=== PATIENT | male | born 1960 | race Caucasian/White ===

== ENCOUNTER 2022-05-30 09:06 | Inpatient (IN) | payer OTHER, SELFPAY ==
[2022-05-30] VITALS (8 sets, daily range): BP systolic 94–166; BP diastolic 64–89; PULSE 70–86; RESP 18–19; TEMP 36.2–36.8; O2SAT 95–100; BMI 29.3; BMI 18.6
--- NOTE | 2022-05-30 10:40 | ED.SOB ---
HPI - SOB/Dyspnea General Time Seen by Provider: 10:40 Date Seen: 05/30/22 Chief Complaint: Shortness of Breath/Dyspnea Stated Complaint: Shortness of breath Time Seen by Provider: 05/30/22 10:24 Source: patient, RN notes reviewed and old records reviewed Mode of arrival: ambulatory Limitations: no limitations History of Present Illness HPI Narrative: Jeffery is a very pleasant 61-year-old gentleman who is a cancer survivor of non-Hodgkin lymphoma from 1988, has a history of type 2 diabetes and chronic kidney disease as well as hypertension who comes to the emergency room for evaluation of shortness of breath. Patient states that for many years he has had intermittent episodes of shortness of breath. Recently last Friday 05/25 he had emergency Oral surgery from an infection in his upper gum line that radiated into his face. He notes that he is on clindamycin for that. He has not had any fevers or chills. He has, however, notice that his shortness of breath seems to be worsening. He is describing the inability to walk very far without stopping and resting. He thinks that he may have borderline asthma and has used inhalers without improvement in the past. He also notes that he always feels like he can not get air into his nose. He did call the [facility] and was told that they could see him today or tomorrow and thus thought he should be evaluated in the emergency room. Patient notes that he is his shortness of breath is not worse with lying down. He has no history of heart problems. He denies any chest pain when the shortness of breath occurs. He does have chronic right leg swelling secondary to varicose veins. This has not changed. He denies any recent fever, runny nose, cough, sore throat. In regards to his lymphoma he was treated with chemotherapy and radiation in 1988. This did not work and he underwent a bone marrow transplant and was hospitalized for 6 weeks. Related Data Home Medications Medication Instructions Recorded Confirmed allopurinol 100 mg tablet 100 mg PO QDAY 02/21/22 05/30/22 omeprazole 40 mg capsule,delayed 40 mg PO QDAY 02/21/22 05/30/22 release clindamycin HCl 300 mg capsule 300 mg PO Q6H 05/30/22 05/30/22 Previous Rx's Medication Instructions Recorded amlodipine 5 mg tablet 5 mg PO .QHS #90 tabs 02/23/22 hydrochlorothiazide 25 mg tablet 25 mg PO QDAY #90 tabs 04/12/22 lisinopril 20 mg tablet 20 mg PO QDAY #90 tabs 04/12/22 Allergies Allergy/AdvReac Type Severity Reaction Status Date / Time amoxicillin Allergy Mild Rash Verified 05/30/22 09:21 Review of Systems Status of ROS: Reports: 10 or more systems reviewed and unremarkable except as noted in History and below Const: Denies: fever, chills or fatigue Eyes: Denies: change in vision ENMT: Reports: mouth pain; Denies: throat pain, neck pain or throat swelling Cardio: Reports: swelling of feet/ankles (Chronic of the right leg.) and shortness of breath with exertion; Denies: chest pain or palpitations Resp: Reports: shortness of breath; Denies: cough, wheezing or pain on inspiration GI: Denies: abdominal pain, nausea, vomiting or diarrhea : Denies: painful urination, urinary frequency or urinary urgency (At night) Musculo: Denies: neck pain Neuro: Denies: headache or weakness in extremities Endo: Denies: fatigue Allergy/Immuno: Denies: throat swelling or wheezing PFSH PFSH Medical History (Updated 05/30/22 @ 19:59 by Jennyfer Casas MD) CKD (chronic kidney disease) DM2 (diabetes mellitus, type 2) Erectile dysfunction GERD (gastroesophageal reflux disease) Gout History of cellulitis Hypertension Non-Hodgkin lymphoma Varicose veins of both lower extremities Surgical History History of cataract surgery History of knee surgery History of varicose vein ligation and stripping Family History (Updated 05/30/22 @ 19:14 by Jennyfer Casas MD) Father Diabetes Bone cancer Mother Schizophrenia Sister Multiple personalities Suicide Social History (Updated 05/30/22 @ 19:46 by Jennyfer Casas MD) Narrative: [employer]. Non smoker, lifelong. Does not use illicit drugs. Has a cat that sometimes breaks the skin. Has not had alcohol in 2 weeks. 5-6 beers 2-3 times per week. Full code. Highest level of school completed/degree received: high school graduate Smoking Status: Never smoker Do you use any of these nicotine containing products: None Second hand tobacco smoke exposure: No How often do you have a drink containing alcohol: never How often do you have six or more drinks on one occasion: Never AUDIT-C Alcohol total score: 0 Non-prescribed substance use: denies use Caffeine: Yes (Diet Mtn Dew, 2-3 cans/day) service: No Exam Narrative: Exam Narrative: Patient is alert and oriented. Nontoxic in appearance. Seen in room 2. Eyes are clear. TMs bilaterally without erythema although right TM is partially obscured by cerumen. Nose without rhinitis. Septum deviated to the left. No excessive erythema or swelling. Oral cavity with poor dentition. He has areas of recent oral surgery upper gumline tooth 8 and 9 no excessive swelling erythema or drainage. Not excessively tender to the touch. Oral cavity with moist mucous membranes. Neck is supple no lymphadenopathy. Heart with regular rate and rhythm. There is a crescendo decrescendo murmur best noted at the lower sternal border. It decreases with the it deep inspiration. Lungs are clear in all lung french. Abdomen soft nontender. Lower extremities without edema. No calf tenderness. Varicosity noted on the right leg. Const: Vital Signs, click to edit/add: Vital Signs - 24 hr 05/30/22 09:15 05/30/22 10:58 05/30/22 18:07 Temperature 97.1 F L 98.1 F Pulse Rate Pulse Rate [Pulse Oximeter] 86 Pulse Rate [Right Pulse Oximeter] 80 Respiratory Rate 18 18 Blood Pressure [Ri ght Arm] 166/81 H Blood Pressure [Ri ght Upper Arm] 94/64 Pulse Oximetry 99 100 99 Oxygen Delivery Me thod Room Air Room Air 05/30/22 18:39 Temperature Pulse Rate 77 Pulse Rate [Pulse Oximeter] Pulse Rate [Right Pulse Oximeter] Respiratory Rate Blood Pressure [Ri ght Arm] Blood Pressure [Ri ght Upper Arm] Pulse Oximetry Oxygen Delivery Me thod Documenting provider has reviewed patient's vital signs: yes Course Course Hospital Course: At this time patient is describing recent oral surgery. He however also has a new murmur associated with increasing shortness of breath with exertion. No evidence of fluid overload at this time. Differential diagnosis is quite broad and does include viral illness such as COVID influenza or RSV, bronchitis, pneumonia, asthma flare, aspiration pneumonia, aortic or mitral valve stenosis, cardiomyopathy, PE at this time will insert IV and draw labs to include CBC, comprehensive panel, CRP, D-dimer, troponin, magnesium. Will also get a chest x-ray as well as urinalysis. Reevaluation(s) Reevaluation #1: Patient noted to continue to be resting comfortably. I did speak to patient about chest x-ray which does show possibility of fibrosis as well as an elevated D-dimer. Although this is minimal in could be attributed to his recent dental surgery IM suggesting chest CT with contrast to rule out PE and to take a closer look at etiology of shortness of breath with exertion. Patient will be hydrated with 1 L saline as his creatinine is 1.5. Vital Signs Vital signs: Initial Vital Signs Temperature 97.1 F L 05/30/22 09:15 Temperature Source Temporal Artery Scan 05/30/22 09:15 Pulse Rate 80 05/30/22 09:15 Respiratory Rate 18 05/30/22 09:15 Blood Pressure 94/64 05/30/22 09:15 Blood Pressure Mean 74 05/30/22 09:15 Blood Pressure Position Sitting 05/30/22 09:15 Pulse Oximetry 99 05/30/22 09:15 Oxygen Delivery Method 05/30/22 09:15 Vital Signs Temperature 97.1 F L 05/30/22 09:15 Pulse Rate 80 05/30/22 09:15 Respiratory Rate 18 05/30/22 09:15 Blood Pressure 94/64 05/30/22 09:15 Pulse Oximetry 99 05/30/22 09:15 Oxygen Delivery Method 05/30/22 09:15 Temperature 97.2 F L 05/30/22 22:00 Pulse Rate 73 05/30/22 22:00 Respiratory Rate 19 05/30/22 22:00 Blood Pressure 150/76 H 05/30/22 22:00 Pulse Oximetry 96 05/30/22 22:00 Oxygen Delivery Method 05/30/22 22:00 MDM - SOB/Dyspnea MDM Narrative Medical decision making narrative: 1. Endocarditis-patient has suspected endocarditis noted on the echocardiogram. This is per tech report. Currently awake waiting official radiological report. I did consult with both extrusion die template maker at [facility] as well as pharmacy. Given patient's penicillin allergy we will be using Primaxin 500 mg and vancomycin 2 g IV. Blood cultures were done drawn prior to that although it should be noted patient has been on clindamycin over the past 5-6 days. Fortunately white count and CRP are reassuring. I did attempt transfer as there are multiple concerns that we do not have ID at [facility]. Unfortunately there were no beds at [place], [facility], [facility], [facility], [facility] or [place]. 2. Recent dental surgery-oral cavity does not appear to be draining. I suspect that this is source of the endocarditis. Patient has been gland clindamycin. 3. Aortic stenosis-this is new. This was auscultated on exam today. Patient denies a history of murmur. I suspect this is secondary to radiation from when Jeffery was younger. No evidence of fluid overload and no history of syncope although patient has being increasingly short of breath over many many months. 4. Pulmonary fibrosis 5. Patchy lung infiltrates-patient has tested negative for viral illnesses since SARs/influenza/RSV. 3. Disposition -admitted under the care of Dr. Casas. Medical Records Attestation: I reviewed the patient's medical records. Lab Data Attestation: I reviewed the patient's lab results. Labs: Lab Results 05/30/22 05/30/22 05/30/22 Range/Units 11:20 11:30 11:30 WBC 5.09 (4.50-11.00) K/uL RBC 4.38 (4.30-5.90) m/uL Hgb 13.7 (13.5-17.5) gm/dL Hct 39.8 (37.0-53.0) % MCV 91 (80-100) fL MCH 31 (26-34) pg MCHC 34 (32-36) gm/dL RDW Coeff of John 13.4 (11.5-15.5) % Plt Count 180 (140-440) K/uL Neut % (Auto) 60.3 (42.0-72.0) % Lymph % (Auto) 26.9 (20-44) % Maury % (Auto) 10.8 (0.0-11.0) % Eos % (Auto) 1.2 (0.0-7.0) % Baso % (Auto) 0.6 (0.0-3.0) % Neut # (Auto) 3.07 (1.7-7.0) K/uL Lymph # (Auto) 1.37 (0.90-2.90) K/uL Maury # (Auto) 0.50 (0.00-0.90) K/UL Eos # (Auto) 0.06 (0.00-0.50) K/uL Baso # (Auto) 0.03 (0.00-0.30) K/uL Abs Immat Gran (auto) 0.01 (0.00-0.30) K/uL Imm/Tot Granulo (auto) 0.2 % D-Dimer Quant (PE/DVT) 0.60 H (0.00-0.50) ug/ml Sodium (135-149) mmol/L Potassium (3.6-5.1) mmol/L Chloride (96-114) mmol/L Carbon Dioxide (20-32) mmol/L BUN (7-30) mg/dL Creatinine (0.5-1.5) mg/dL Estimated Creat Clear Estimated GFR ml/min Glucose (60-115) mg/dL Calcium (8.4-10.6) mg/dL Magnesium (1.5-2.6) mg/dL Total Bilirubin (0.1-1.5) mg/dL AST (12-35) U/L ALT (4-50) U/L Alkaline Phosphatase (40-150) U/L Troponin I (0.01-0.04) ng/mL C-Reactive Protein (0.5-1.0) mg/dL NT-Pro-B Natriuret Pep (0-125) PG/mL Total Protein (6.0-8.3) g/dL Albumin (3.3-5.0) g/dL Urine Color Yellow (Yellow) Urine Appearance Clear (Clear) Urine pH 5.5 (5.0-8.5) Ur Specific [place] 1.015 (1.000-1.030) Urine Protein Negative (Negative) Urine Glucose (UA) Negative (Negative) Urine Ketones Negative (Negative) Urine Blood Negative (Negative) Urine Nitrite Negative (Negative) Urine Bilirubin Negative (Negative) Urine Urobilinogen 0.2 (0.2-1.0) Ur Leukocyte Esterase Negative (Negative) Urine RBC 0-2 (0-2) Urine WBC 0-2 (0-5) Ur Squamous Epith Cells None (None-Few) Urine Bacteria None (None) SARS-CoV-2 (PCR) (Negative) Influenza Type A (PCR) (Negative) Influenza Type B (PCR) (Negative) RSV (PCR) (Negative) 05/30/22 05/30/22 Range/Units 11:30 11:30 WBC (4.50-11.00) K/uL RBC (4.30-5.90) m/uL Hgb (13.5-17.5) gm/dL Hct (37.0-53.0) % MCV (80-100) fL MCH (26-34) pg MCHC (32-36) gm/dL RDW Coeff of John (11.5-15.5) % Plt Count (140-440) K/uL Neut % (Auto) (42.0-72.0) % Lymph % (Auto) (20-44) % Maury % (Auto) (0.0-11.0) % Eos % (Auto) (0.0-7.0) % Baso % (Auto) (0.0-3.0) % Neut # (Auto) (1.7-7.0) K/uL Lymph # (Auto) (0.90-2.90) K/uL Maury # (Auto) (0.00-0.90) K/UL Eos # (Auto) (0.00-0.50) K/uL Baso # (Auto) (0.00-0.30) K/uL Abs Immat Gran (auto) (0.00-0.30) K/uL Imm/Tot Granulo (auto) % D-Dimer Quant (PE/DVT) (0.00-0.50) ug/ml Sodium 133 L (135-149) mmol/L Potassium 3.2 L (3.6-5.1) mmol/L Chloride 99 (96-114) mmol/L Carbon Dioxide 28 (20-32) mmol/L BUN 24 (7-30) mg/dL Creatinine 1.5 (0.5-1.5) mg/dL Estimated Creat Clear 66.80 Estimated GFR 52 ml/min Glucose 110 (60-115) mg/dL Calcium 8.8 (8.4-10.6) mg/dL Magnesium 1.5 (1.5-2.6) mg/dL Total Bilirubin 0.8 (0.1-1.5) mg/dL AST 36 H (12-35) U/L ALT 48 (4-50) U/L Alkaline Phosphatase 94 (40-150) U/L Troponin I 0.02 (0.01-0.04) ng/mL C-Reactive Protein 0.7 (0.5-1.0) mg/dL NT-Pro-B Natriuret Pep 248 H (0-125) PG/mL Total Protein 7.6 (6.0-8.3) g/dL Albumin 4.4 (3.3-5.0) g/dL Urine Color (Yellow) Urine Appearance (Clear) Urine pH (5.0-8.5) Ur Specific [place] (1.000-1.030) Urine Protein (Negative) Urine Glucose (UA) (Negative) Urine Ketones (Negative) Urine Blood (Negative) Urine Nitrite (Negative) Urine Bilirubin (Negative) Urine Urobilinogen (0.2-1.0) Ur Leukocyte Esterase (Negative) Urine RBC (0-2) Urine WBC (0-5) Ur Squamous Epith Cells (None-Few) Urine Bacteria (None) SARS-CoV-2 (PCR) Negative SARS-CoV-2 (Negative) Influenza Type A (PCR) Negative PCR FLU A (Negative) Influenza Type B (PCR) Negative PCR FLU B (Negative) RSV (PCR) Negative PCR RSV (Negative) Imaging Data Chest x-ray: Attestation: I have reviewed the pertinent imaging results. My impression: Increased lung markings but no evidence of infiltrate. Radiologist's impression: Reticular densities in the right perihilar lung extending to the right upper lobe more prominent compared to the prior exam. Left lung clear. No pleural effusion or pneumothorax. Cardiac silhouette normal. Vascular calcifications. IMPRESSION: Increased reticular prominence in the right perihilar lung extending to the right upper lobe, likely representing chronic fibrotic change. CT scan - chest: Attestation: I have reviewed the pertinent imaging results. My impression: I did not note any evidence of PE Radiologist's impression: INDINGS: Pulmonary arteries: The quality of enhancement of the pulmonary arteries is adequate. No filling defects to suggest pulmonary emboli. No findings of pulmonary artery hypertension. Thyroid: Unremarkable. Thoracic lymph nodes: No enlarged supraclavicular, mediastinal, hilar, or axillary lymph nodes. Mediastinum and esophagus: Unremarkable. Heart and vasculature: Unremarkable. Lungs: Coarse interstitial markings with areas of air bronchograms in the right upper lobe suggestive of chronic changes. Diffuse patchy consolidation scattered throughout the right upper and lower lobes. Patchy opacities in the left lower lobe. Pleura: Unremarkable. Chest wall: Unremarkable. Upper abdomen: No acute or significant findings. Calcifications in the spleen are likely granulomas. Bones: Unremarkable for age. IMPRESSION: 1. No pulmonary embolism. 2. Findings suggest chronic changes in the right upper lobe, with diffuse patchy consolidations, probably superimposed acute multifocal infection. ECG Data Attestation: I personally reviewed and interpreted this ECG as follows: ECG interpretation date: 05/30/22 Interpretation: EKG by my read shows normal sinus rhythm at a rate of [address] or T-wave changes are noted. Discharge Plan Discharge Clinical Impression: Aortic stenosis, Endocarditis, Pneumonia Patient Disposition: Admitted As Inpatient Condition: Unchanged
--- NOTE | 2022-05-30 10:58 | CRLHL7_ITS ---
For Patients: As a result of the Century Cures Act, medical imaging exams and procedure reports are released immediately into your electronic medical record. You may view this report before your referring provider. If you have questions, please contact your health care provider. INDICATION: Shortness of breath TECHNIQUE: Chest one view COMPARISON: 11/20/2017 FINDINGS: Reticular densities in the right perihilar lung extending to the right upper lobe more prominent compared to the prior exam. Left lung clear. No pleural effusion or pneumothorax. Cardiac silhouette normal. Vascular calcifications. IMPRESSION: Increased reticular prominence in the right perihilar lung extending to the right upper lobe, likely representing chronic fibrotic change. Dictated by Messi Randhawa MD @ 05/30/2022 11:27:49 AM (Electronically Signed)
[2022-05-30 11:43] LABS: Appearance Urine Clear (Clear); Bilirubin Urine Negative (Negative); Blood Urine Negative (Negative); Color Urine Yellow (Yellow); Glucose Urine Negative (Negative); Ketones Urine Negative (Negative); Leukocyte Esterase Urine Negative (Negative); Nitrite Urine Negative (Negative); Protein Urine Negative (Negative); Specific Gravity Urine 1.015 (1.000-1.030); Urobilinogen Urine 0.2 (0.2-1.0); pH Urine 5.5 (5.0-8.5)
[2022-05-30 11:45] LABS: Basophils Absolute Auto 0.03 K/uL (0.00-0.30); Basophils Percent Auto 0.6 % (0.0-3.0); Eosinophils Absolute Auto 0.06 K/uL (0.00-0.50); Eosinophils Percent Auto 1.2 % (0.0-7.0); Hematocrit 39.8 % (37.0-53.0); Hemoglobin* 13.7 gm/dL (13.5-17.5); Immature Granulocytes Abs Auto 0.01 K/uL (0.00-0.30); Immature Granulocytes Pct Auto 0.2 %; Lymphocytes Absolute Auto 1.37 K/uL (0.90-2.90); Lymphocytes Percent Auto 26.9 % (20-44); Mean Corpuscular HGB Conc 34 gm/dL (32-36); Mean Corpuscular Hemoglobin 31 pg (26-34); Mean Corpuscular Volume 91 fL (80-100); Monocytes Percent Auto 10.8 % (0.0-11.0); Neutrophils Absolute Auto 3.07 K/uL (1.7-7.0); Neutrophils Percent Auto 60.3 % (42.0-72.0); Platelet Count* 180 K/uL (140-440); RDW Coefficient of Variation % 13.4 % (11.5-15.5); Red Blood Count 4.38 m/uL (4.30-5.90); White Blood Count* 5.09 K/uL (4.50-11.00)
[2022-05-30 11:52] LABS: Slide Review Reflex No
[2022-05-30 11:59] LABS: Albumin* 4.4 g/dL (3.3-5.0); Chloride* 99 mmol/L (96-114); Potassium* 3.2 mmol/L (3.6-5.1); Sodium* 133 mmol/L (135-149)
[2022-05-30 12:01] LABS: Creatinine* 1.5 mg/dL (0.5-1.5); Estimated Glomerular Filt Rate 52 ml/min
[2022-05-30 12:02] LABS: Alanine Aminotransferase* 48 U/L (4-50); Alkaline Phosphatase* 94 U/L (40-150); Aspartate Amino Transferase* 36 U/L (12-35); Bilirubin Total* 0.8 mg/dL (0.1-1.5); Blood Urea Nitrogen* 24 mg/dL (7-30); Carbon Dioxide* 28 mmol/L (20-32); Total Protein* 7.6 g/dL (6.0-8.3)
[2022-05-30 12:03] LABS: Calcium* 8.8 mg/dL (8.4-10.6); Glucose* 110 mg/dL (60-115); Magnesium* 1.5 mg/dL (1.5-2.6)
[2022-05-30 12:04] LABS: RBC Urine 0-2 (0-2); WBC Urine 0-2 (0-5)
[2022-05-30 12:05] LABS: C Reactive Protein* 0.7 mg/dL (0.5-1.0)
[2022-05-30 12:10] LABS: NT Pro B Type NatriureticPept* 248 PG/mL (0-125)
[2022-05-30 12:13] LABS: Troponin I* 0.02 ng/mL (0.01-0.04)
[2022-05-30 12:21] LABS: PCR FLU A Negative PCR FLU A (Negative); PCR FLU B Negative PCR FLU B (Negative); PCR RSV Negative PCR RSV (Negative)
[2022-05-30 12:33] LABS: SARS PCR* Negative SARS-CoV-2 (Negative)
--- NOTE | 2022-05-30 12:52 | CRLHL7_ITS ---
For Patients: As a result of the Century Cures Act, medical imaging exams and procedure reports are released immediately into your electronic medical record. You may view this report before your referring provider. If you have questions, please contact your health care provider. INDICATION: Shortness of breath, recent oral surgery, elevated D-dimer. TECHNIQUE: CT chest PE was acquired with 95 mL Isovue 370 IV contrast. Coronal and sagittal reformats were generated. COMPARISON: Chest x-ray from 05/30/2022 and 11/20/2017. FINDINGS: Pulmonary arteries: The quality of enhancement of the pulmonary arteries is adequate. No filling defects to suggest pulmonary emboli. No findings of pulmonary artery hypertension. Thyroid: Unremarkable. Thoracic lymph nodes: No enlarged supraclavicular, mediastinal, hilar, or axillary lymph nodes. Mediastinum and esophagus: Unremarkable. Heart and vasculature: Unremarkable. Lungs: Coarse interstitial markings with areas of air bronchograms in the right upper lobe suggestive of chronic changes. Diffuse patchy consolidation scattered throughout the right upper and lower lobes. Patchy opacities in the left lower lobe. Pleura: Unremarkable. Chest wall: Unremarkable. Upper abdomen: No acute or significant findings. Calcifications in the spleen are likely granulomas. Bones: Unremarkable for age. IMPRESSION: 1. No pulmonary embolism. 2. Findings suggest chronic changes in the right upper lobe, with diffuse patchy consolidations, probably superimposed acute multifocal infection. Please note that all CT scans at this facility use dose modulation, iterative reconstruction, and/or weight-based dosing when appropriate to reduce radiation dose to as low as reasonably achievable. Dictated by Valente Hicks MD @ 05/30/2022 2:33:25 PM (Electronically Signed)
[2022-05-30] MEDS: 0.9 % SODIUM CHLORIDE 1000 ml 1,000 ML IV (13:39)
--- NOTE | 2022-05-30 19:03 | PC.NURSE ---
Admission. Pt admitted to room 260 from ER. Alert and oriented. Denies pain. VSS on room air. Telemetry monitoring, NSR. Vanco infusing from ER. Admission questions and education completed. Call light within reach. Oriented to room.
--- NOTE | 2022-05-30 19:08 | P.IMHP_ITS ---
Hospitalist- H&P: HPI History of Present Illness Time Seen by Provider: 19:30 Date Seen: 05/31/22 Chief complaint: Shortness of breath Narrative: Jeffery Newton is a 61 year old male with h/o Hodgkins lymphoma 38 y/a for which he had radiation, chemo and BM transplant who presented through ER for CARTAGENA. He's had intermittent CARTAGENA for several months. Last monday, he had oral surgery for a dental abscess and started ciprofloxacin that day. 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 He was too tired, SOB, dizzy, and felt like he couldn't get enough air. He went home and took it easy for the weekend. His daughter noticed on their outing yesterday that he was leaning against the wall trying to catch his breath a coup le of times. This morning he tried to go back to work, but was very short of breath, so he came in for evaluation. He thought he had a sinus infection. He denies CP, palpitations or irregular HR. Review of Systems Const: Reports: fatigue, malaise and night sweats (1.5-2 years, 1 night sweat per 3 months); Denies: fever or chills Eyes: Denies: change in vision, blurry vision or light sensitivity ENMT: Reports: swelling of lips/tongue (last week had infected tooth that caused face swelling as well); Denies: throat pain, neck pain, throat swelling or difficulty swallowing Cardio: Reports: swelling of feet/ankles (vericose veins, especially right leg) and shortness of breath with exertion; Denies: chest pain or palpitations Resp: Reports: shortness of breath and wheezing; Denies: cough GI: Denies: abdominal pain, nausea, vomiting, difficulty swallowing, change in bowel habits or blood in stool : Denies: painful urination, urinary frequency, urinary urgency or blood in urine Musculo: Denies: neck pain Integ/Breast: Denies: rash Neuro: Reports: dizziness and other (right arm tremor); Denies: headache, numbness in extremities, weakness in extremities or lack of coordination Endo: Reports: fatigue Allergy/Immuno: Reports: wheezing; Denies: throat swelling PFSH PFSH Medical History (Updated 05/31/22 @ 00:13 by Jennyfer Casas MD) CKD (chronic kidney disease) DM2 (diabetes mellitus, type 2) Erectile dysfunction GERD (gastroesophageal reflux disease) Gout History of cellulitis Hypertension Non-Hodgkin lymphoma Varicose veins of both lower extremities Surgical History History of cataract surgery History of knee surgery History of varicose vein ligation and stripping Family History (Updated 05/30/22 @ 19:14 by Jennyfer Casas MD) Father Diabetes Bone cancer Mother Schizophrenia Sister Multiple personalities Suicide Social History (Updated 05/30/22 @ 19:46 by Jennyfer Casas MD) Narrative: [employer]. Non smoker, lifelong. Does not use illicit drugs. Has a cat that sometimes breaks the skin. Has not had alcohol in 2 weeks. 5-6 beers 2-3 times per week. Full code. Highest level of school completed/degree received: high school graduate Smoking Status: Never smoker Do you use any of these nicotine containing products: None Second hand tobacco smoke exposure: No How often do you have a drink containing alcohol: never How often do you have six or more drinks on one occasion: Never AUDIT-C Alcohol total score: 0 Non-prescribed substance use: denies use Caffeine: Yes (Diet Mtn Dew, 2-3 cans/day) service: No Meds Home Medications and Allergies Home Medications Medication Instructions Recorded Confirmed Type allopurinol 100 mg tablet 100 mg PO QDAY 02/21/22 05/30/22 History omeprazole 40 mg capsule,delayed 40 mg PO QDAY 02/21/22 05/30/22 History release clindamycin HCl 300 mg capsule 300 mg PO Q6H 05/30/22 05/30/22 History Allergies Allergy/AdvReac Type Severity Reaction Status Date / Time amoxicillin Allergy Mild Rash Verified 05/30/22 09:21 Exam Narrative: Exam Narrative: General: No acute distress. Awake alert oriented x3. HEENT: Normocephalic atraumatic, pupils equally round and reactive to light and accommodation. Oropharynx clear, poor dentition. Mucous membranes are moist. No cervical lymphadenopathy, thyromegaly or carotid bruits. No JVD. Cardiovascular: Regular rate and rhythm. Grade 2/6 systolic murmur loudest at the right upper sternal border. Chest: No increased work of breathing. Clear to auscultation bilaterally. No crackles or wheezes. Abdomen: Bowel sounds present. Soft, nondistended, nontender. No hep atosplenomegaly or masses. Extremities: No edema, no cyanosis or clubbing. Skin: No jaundice, no pallor, no rashes. Neuro: Grossly intact. No focal deficits. Const: Vital Signs, click to edit/add: Vital Signs - 24 hr 05/30/22 09:15 05/30/22 10:58 05/30/22 18:07 Temperature 97.1 F L 98.1 F Pulse Rate Pulse Rate [Pulse Oximeter] 86 Pulse Rate [Right Pulse Oximeter] 80 Respiratory Rate 18 18 Blood Pressure [Ri ght Arm] 166/81 H Blood Pressure [Ri ght Upper Arm] 94/64 Pulse Oximetry 99 100 99 Oxygen Delivery Me thod Room Air Room Air 05/30/22 18:39 Temperature Pulse Rate 77 Pulse Rate [Pulse Oximeter] Pulse Rate [Right Pulse Oximeter] Respiratory Rate Blood Pressure [Ri ght Arm] Blood Pressure [Ri ght Upper Arm] Pulse Oximetry Oxygen Delivery Me thod Eye: Direct Ophthalmoscopy: no photophobia Hospitalist - H&P: Result Labs Labs: Short CBC 05/30/22 Range/Units 11:30 WBC 5.09 (4.50-11.00) K/uL Hgb 13.7 (13.5-17.5) gm/dL Hct 39.8 (37.0-53.0) % Plt Count 180 (140-440) K/uL BMP 05/30/22 11:30 Sodium 133 L Potassium 3.2 L Chloride 99 Carbon Dioxide 28 BUN 24 Creatinine 1.5 Glucose 110 Calcium 8.8 Cardiac Enzymes 05/30/22 Range/Units 11:30 Troponin I 0.02 (0.01-0.04) ng/mL Liver Function 05/30/22 Range/Units 11:30 Total Bilirubin 0.8 (0.1-1.5) mg/dL AST 36 H (12-35) U/L ALT 48 (4-50) U/L Alkaline Phosphatase 94 (40-150) U/L Albumin 4.4 (3.3-5.0) g/dL Urine 05/30/22 Range/Units 11:20 Urine Color Yellow (Yellow) Urine Appearance Clear (Clear) Urine pH 5.5 (5.0-8.5) Ur Specific [place] 1.015 (1.000-1.030) Urine Protein Negative (Negative) Urine Glucose (UA) Negative (Negative) Ordering Physician: Rula Mercado MD Date of Service: 05/30/22 Procedure(s): XR chest 1V portable Accession Number(s): [id number] cc: Rula Mercado MD; Comfort Mae PA-C~ For Patients: As a result of the Cures Act, medical imaging exams and procedure reports are released immediately into your electronic medical record. You may view this report before your referring provider. If you have questions, please contact your health care provider. INDICATION: Shortness of breath TECHNIQUE: Chest one view COMPARISON: 11/20/2017 FINDINGS: Reticular densities in the right perihilar lung extending to the right upper lobe more prominent compared to the prior exam. Left lung clear. No pleural effusion or pneumothorax. Cardiac silhouette normal. Vascular calcifications. IMPRESSION: Increased reticular prominence in the right perihilar lung extending to the right upper lobe, likely representing chronic fibrotic change. Dictated by Messi Randhawa MD @ 05/30/2022 11:27:49 AM (Electronically Signed) Ordering Physician: Rula Mercado MD Date of Service: 05/30/22 Procedure(s): CT angio chest PE protocol Accession Number(s): [id number] cc: Rula Mercado MD; Comfort Mae PA-C~ For Patients: As a result of the Cures Act, medical imaging exams and procedure reports are released immediately into your electronic medical record. You may view this report before your referring provider. If you have questions, please contact your health care provider. INDICATION: Shortness of breath, recent oral surgery, elevated D-dimer. TECHNIQUE: CT chest PE was acquired with 95 mL Isovue 370 IV contrast. Coronal and sagittal reformats were generated. COMPARISON: Chest x-ray from 05/30/2022 and 11/20/2017. FINDINGS: Pulmonary arteries: The quality of enhancement of the pulmonary arteries is adequate. No filling defects to suggest pulmonary emboli. No findings of pulmonary artery hypertension. Thyroid: Unremarkable. Thoracic lymph nodes: No enlarged supraclavicular, mediastinal, hilar, or axillary lymph nodes. Mediastinum and esophagus: Unremarkable. Heart and vasculature: Unremarkable. Lungs: Coarse interstitial markings with areas of air bronchograms in the right upper lobe suggestive of chronic changes. Diffuse patchy consolidation scattered throughout the right upper and lower lobes. Patchy opacities in the left lower lobe. Pleura: Unremarkable. Chest wall: Unremarkable. Upper abdomen: No acute or significant findings. Calcifications in the spleen are likely granulomas. Bones: Unremarkable for age. IMPRESSION: 1. No pulmonary embolism. 2. Findings suggest chronic changes in the right upper lobe, with diffuse patchy consolidations, probably superimposed acute multifocal infection. Please note that all CT scans at this facility use dose modulation, iterative reconstruction, and/or weight-based dosing when appropriate to reduce radiation dose to as low as reasonably achievable. Dictated by Valente Hicks MD @ 05/30/2022 2:33:25 PM (Electronically Signed) Assessment and Plan Assessment and plan (1) Endocarditis: Problem comment: Possibly secondary to recent dental work and tooth abscess, also complicated by chronic valvular disease, likely secondary to radiation treatment for lymphoma Status: Acute Assessment and Plan: Admit for IV primaxin and vanco and daily BC. When BC have no growth for 72 hours can consider PICC and consulation to ID to determine longer term treatment plan. (2) Pneumonia: Status: Acute Assessment and Plan: IV primaxin and vanco (3) Aortic stenosis: Problem comment: likely secondary to radiation treatment for lymphoma Status: Acute Assessment and Plan: Will need outpatient cardiology (4) Hypertension: Status: Chronic Assessment and Plan: Continue lisinopril. Will hold HCTZ and amlodipine. If hypertensive, may need to restart these. (5) Non-Hodgkin lymphoma: Problem comment: Bone marrow transplant at age 26 Status: Inactive (6) DM2 (diabetes mellitus, type 2): Problem comment: Diet controlled Status: Chronic Assessment and Plan: Diabetic diet. (7) CKD (chronic kidney disease): Problem comment: Dr. Velásquez stage 3b Status: Chronic Assessment and Plan: Stable.
[2022-05-30] MEDS: ENOXAPARIN 40 MG/0.4 ML INJ SUBCUT (21:48)
[2022-05-30] MEDS: POTASSIUM BICARB 25 MEQ EFFERVESCENT TAB PO (21:48)
[2022-05-31] VITALS (10 sets, daily range): BP systolic 125–166; BP diastolic 66–90; PULSE 66–109; RESP 16; TEMP 36.1–37; O2SAT 96–98
[2022-05-31 07:24] LABS: Basophils Percent Auto 0.6 % (0.0-3.0); Eosinophils Percent Auto 1.1 % (0.0-7.0); Hematocrit 39.1 % (37.0-53.0); Hemoglobin* 13.4 gm/dL (13.5-17.5); Lymphocytes Percent Auto 26.3 % (20-44); Mean Corpuscular HGB Conc 34 gm/dL (32-36); Mean Corpuscular Hemoglobin 31 pg (26-34); Mean Corpuscular Volume 91 fL (80-100); Monocytes Percent Auto 11.2 % (0.0-11.0); Neutrophils Percent Auto 60.8 % (42.0-72.0); Platelet Count* 184 K/uL (140-440); RDW Coefficient of Variation % 13.5 % (11.5-15.5); Red Blood Count 4.29 m/uL (4.30-5.90); White Blood Count* 3.57 K/uL (4.50-11.00)
[2022-05-31 07:29] LABS: Slide Review Reflex No
[2022-05-31 07:42] LABS: Chloride* 105 mmol/L (96-114); Potassium* 3.9 mmol/L (3.6-5.1); Sodium* 135 mmol/L (135-149)
[2022-05-31 07:45] LABS: Blood Urea Nitrogen* 16 mg/dL (7-30); Carbon Dioxide* 25 mmol/L (20-32); Est. Creatinine Clearance* 80.09; Estimated Glomerular Filt Rate 85 ml/min
[2022-05-31 07:46] LABS: Glucose* 86 mg/dL (60-115)
[2022-05-31] MEDS: OMEPRAZOLE 20 MG CAPSULE DR 40 MG PO (09:14)
[2022-05-31] MEDS: allopurinoL 100 MG TABLET PO (09:14)
[2022-05-31] MEDS: lisinopriL 20 MG TABLET PO (09:14)
--- NOTE | 2022-05-31 12:44 | PM.IMPN1 ---
Progress Note: A&P Assessment and plan (1) Endocarditis: Problem details: - possibly secondary to recent dental work and tooth abscess, also complicated by chronic valvular disease, likely secondary to radiation treatment for lymphoma Status: Acute (2) Hypertension: Status: Chronic (3) Non-Hodgkin lymphoma: Problem details: - s/p bone marrow transplant at age 26 Status: Inactive (4) DM2 (diabetes mellitus, type 2): Problem details: - diet controlled Status: Chronic (5) CKD (chronic kidney disease): Problem details: - Dr. 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 that have ID and Cardiology on staff - I was able to talk with Dr. Lynne Gómez, hospitalist at the [facility], who agrees to accept patient in transfer, with the understanding that bed may not be available until tomorrow - patient and daughter in agreement with plan, questions answered Subjective Date Seen: 05/31/22 Interval history: No acute events overnight. Daughter Staci visiting today, present throughout visit. Patient denies any concerns for hospitalist team. Tolerating IV antibiotics. Exam Narrative: Exam Narrative: GEN: Alert and oriented, sitting comfortably in bed and answering questions appropriately HEENT: Normal external ears, EOMIs bilaterally CV: RRR, blowing systolic murmur heard across precordium, no radiation to carotids R: LCTA bilaterally without concerning wheezing, rales, or rhonchi, air movement adequate Ext: wwp, trace ankle edema Skin: No concerning skin lesions or rashes on exposed skin Neuro: Nonfocal Psych: Appropriate Const: Vital Signs, click to edit/add: Vital Signs - 24 hr 05/30/22 18:07 05/30/22 18:39 05/30/22 21:59 Temperature 98.1 F Pulse Rate 77 Pulse Rate [Left A pical] Pulse Rate [Pulse Oximeter] 86 Respiratory Rate 18 Blood Pressure [Ri ght Arm] 166/81 H Pulse Oximetry 99 95 Oxygen Delivery Me thod Room Air Room Air 05/30/22 22:00 05/30/22 20:37 05/30/22 23:00 Temperature 97.2 F L Pulse Rate 73 Pulse Rate [Left A pical] 75 73 Pulse Rate [Pulse Oximeter] 73 70 Respiratory Rate 19 Blood Pressure [Ri ght Arm] 150/76 H Pulse Oximetry 96 Oxygen Delivery Me thod Room Air 05/30/22 23:00 05/31/22 02:20 05/31/22 07:45 Temperature 98.2 F 98 F Pulse Rate 68 Pulse Rate [Left A pical] 73 66 Pulse Rate [Pulse Oximeter] Respiratory Rate 18 16 Blood Pressure [Ri ght Arm] 162/89 H 135/79 Pulse Oximetry 96 96 Oxygen Delivery Me thod Room Air Room Air 05/31/22 07:45 05/31/22 07:45 05/31/22 11:19 Temperature 98.0 F 97.0 F L Pulse Rate Pulse Rate [Left A pical] 74 74 73 Pulse Rate [Pulse Oximeter] 74 74 73 Respiratory Rate 16 16 16 Blood Pressure [Ri ght Arm] 143/88 H 125/66 Pulse Oximetry 97 98 Oxygen Delivery [place] thod Room Air Room Air Labs Labs: Laboratory Results - last 24 hr 05/31/22 05/31/22 07:06 07:06 WBC 3.57 L RBC 4.29 L Hgb 13.4 L Hct 39.1 MCV 91 MCH 31 MCHC 34 RDW Coeff of John 13.5 Plt Count 184 Neut % (Auto) 60.8 Lymph % (Auto) 26.3 [place] % (Auto) 11.2 H Eos % (Auto) 1.1 Baso % (Auto) 0.6 Neut # (Auto) 2.20 Lymph # (Auto) 0.90 [place] # (Auto) 0.40 Eos # (Auto) 0.00 Baso # (Auto) 0.00 Abs Immat Gran (auto) 0.00 Imm/Tot Granulo (auto) 0.0 Sodium 135 Potassium 3.9 Chloride 105 Carbon Dioxide 25 BUN 16 Creatinine 1.0 Estimated Creat Clear 80.09 Estimated GFR 85 Glucose 86 Calcium 9.0
[2022-05-31] MEDS: LACTOBACILLUS ACIDOPHILUS 1 TABLET 1 TAB PO (17:57)
--- NOTE | 2022-05-31 20:12 | PC.NURSE ---
end of shift. pt is very pleasant. no pain. he is alert x4 VSS on room air. Telemetry monitoring, NSR, ST . SL is patent and IV antibiotics are infusing teds and scds are on and off. he is up ab que
[2022-05-31] MEDS: ENOXAPARIN 40 MG/0.4 ML INJ SUBCUT (21:50)
[2022-06-01] VITALS (8 sets, daily range): BP systolic 161–200; BP diastolic 82–115; PULSE 67–82; RESP 14–18; TEMP 36.6–37.2; O2SAT 95–97
--- NOTE | 2022-06-01 03:04 | PC.NURSE ---
Pt rested well this night. Up IND in room. Reporting zero pain. Afebrile. BP hypertensive.
[2022-06-01] MEDS: LACTOBACILLUS ACIDOPHILUS 1 TABLET 1 TAB PO ×3 (07:34→17:37)
[2022-06-01 07:52] LABS: Basophils Percent Auto 0.7 % (0.0-3.0); Eosinophils Percent Auto 1.2 % (0.0-7.0); Hemoglobin* 12.6 gm/dL (13.5-17.5); Immature Granulocytes Pct Auto 0.2 %; Lymphocytes Percent Auto 23.5 % (20-44); Mean Corpuscular HGB Conc 34 gm/dL (32-36); Mean Corpuscular Hemoglobin 31 pg (26-34); Mean Corpuscular Volume 92 fL (80-100); Monocytes Percent Auto 9.2 % (0.0-11.0); Neutrophils Percent Auto 65.2 % (42.0-72.0); Platelet Count* 183 K/uL (140-440); RDW Coefficient of Variation % 13.4 % (11.5-15.5); Red Blood Count 4.02 m/uL (4.30-5.90); White Blood Count* 4.04 K/uL (4.50-11.00)
[2022-06-01 07:57] LABS: Slide Review Reflex No
[2022-06-01 08:05] LABS: Albumin* 3.4 g/dL (3.3-5.0); Chloride* 106 mmol/L (96-114)
[2022-06-01 08:06] LABS: Potassium* 3.8 mmol/L (3.6-5.1); Sodium* 136 mmol/L (135-149)
[2022-06-01 08:08] LABS: Aspartate Amino Transferase* 29 U/L (12-35); Bilirubin Total* 0.8 mg/dL (0.1-1.5); Carbon Dioxide* 25 mmol/L (20-32); Est. Creatinine Clearance* 80.09; Estimated Glomerular Filt Rate 85 ml/min; Total Protein* 6.3 g/dL (6.0-8.3)
[2022-06-01 08:09] LABS: Alanine Aminotransferase* 37 U/L (4-50); Alkaline Phosphatase* 83 U/L (40-150); Blood Urea Nitrogen* 13 mg/dL (7-30); Calcium* 8.5 mg/dL (8.4-10.6); Glucose* 88 mg/dL (60-115)
[2022-06-01 08:24] LABS: Troponin I* < 0.01 ng/mL (0.01-0.04)
[2022-06-01 08:25] LABS: Procalcitonin* 0.06 ng/mL (<0.50)
[2022-06-01] MEDS: allopurinoL 100 MG TABLET PO (09:20)
[2022-06-01] MEDS: AMLODIPINE 5 MG TABLET PO (09:20)
[2022-06-01] MEDS: lisinopriL 20 MG TABLET PO (09:21)
[2022-06-01] MEDS: OMEPRAZOLE 20 MG CAPSULE DR 40 MG PO (09:21)
--- NOTE | 2022-06-01 10:43 | CRLHL7_ITS ---
For Patients: As a result of the Century Cures Act, medical imaging exams and procedure reports are released immediately into your electronic medical record. You may view this report before your referring provider. If you have questions, please contact your health care provider. INDICATION: Shortness of breath. TECHNIQUE: Chest 1 views. COMPARISON: 05/30/2022. FINDINGS: Cardiovasculature and mediastinum: Heart size and vasculature are normal in caliber and appearance. Lungs and pleural spaces: Chronic fibrotic changes in the medial right lung are stable. Remainder of the lungs and pleural spaces are clear. No pneumothorax. Bones and soft tissues: No significant findings. IMPRESSION: No acute findings and no significant changes from the prior exam. Dictated by Sanjeev Gibbs MD @ 06/01/2022 11:42:50 AM (Electronically Signed)
--- NOTE | 2022-06-01 10:43 | P.IMPN_ITS ---
Progress Note: A&P Assessment and plan (1) Endocarditis: Problem details: - noted on TTE, aortic valve - possibly secondary to recent dental work and tooth abscess, also complicated by chronic valvular disease, likely secondary to radiation treatment for lymphoma - on IV Primaxin and vancomycin - current blood cultures NGTD Status: Acute (2) Hypertension: Problem details: - continuing home lisinopril and amlodipine, holding hydrochlorothiazide - goal blood pressure 1 40-160 systolic, will increase amlodipine if needed Status: Chronic (3) Non-Hodgkin lymphoma: Problem details: - s/p bone marrow transplant at age 26 Status: Inactive (4) DM2 (diabetes mellitus, type 2): Problem details: - diet controlled Status: Chronic (5) CKD (chronic kidney disease): Problem details: - Dr. Velásquez , stage 3b - current GFR 85 Status: Chronic Plan - per above - Lovenox for prophylaxis - we continue to explore transfer possibilities, calling tertiary care centers thrice daily - patient was accepted by the [facility] yesterday; however, it does not appear bed will be available for patient Subjective Date Seen: 06/01/22 Interval history: No acute events overnight. Patient is having no chest pain, no dyspnea, no presyncope. He is tolerating IV antibiotics well. Eating well. Daughter Staci present by phone. Patient denies any concerns for hospitalist team. Exam Narrative: Exam Narrative: GEN: Alert and oriented, nontoxic in appearance HEENT: Normal external ears, EOMIs bilaterally, no scleral icterus CV: RRR, + murmur at left upper sternal border, unchanged from admission R: LCTA bilaterally without concerning wheezing, rales, or rhonchi Ext: wwp, trace edema Skin: No concerning skin lesions or rashes on exposed skin Neuro: Nonfocal Psych: Appropriate Const: Vital Signs, click to edit/add: Vital Signs - 24 hr 05/31/22 11:19 05/31/22 15:15 05/31/22 15:46 Temperature 97.0 F L 98.6 F Pulse Rate 109 H Pulse Rate [Left A pical] 73 79 Pulse Rate [Pulse Oximeter] 73 79 Respiratory Rate 16 16 Blood Pressure [Ri ght Arm] 125/66 166/80 H Pulse Oximetry 98 97 Oxygen Delivery Me thod Room Air Room Air 05/31/22 15:47 05/31/22 19:00 05/31/22 23:38 Temperature 98.4 F 98.4 F Pulse Rate Pulse Rate [Left A pical] 79 70 Pulse Rate [Pulse Oximeter] 79 78 70 Respiratory Rate 16 16 16 Blood Pressure [Ri ght Arm] 138/90 H 159/71 H Pulse Oximetry 97 96 Oxygen Delivery Me thod Room Air Room Air 05/31/22 23:40 05/31/22 23:46 06/01/22 02:42 Temperature 97.8 F Pulse Rate 67 Pulse Rate [Left A pical] 70 82 Pulse Rate [Pulse Oximeter] 70 Respiratory Rate 16 16 Blood Pressure [Ri ght Arm] 170/94 H Pulse Oximetry 95 Oxygen Delivery Me thod Room Air 06/01/22 07:00 06/01/22 07:00 Temperature 98.5 F Pulse Rate Pulse Rate [Left A pical] Pulse Rate [Pulse Oximeter] 73 73 Respiratory Rate 14 14 Blood Pressure [Ri ght Arm] 200/115 H Pulse Oximetry 96 Oxygen Delivery [place] thod Room Air Labs Labs: Laboratory Results - last 24 hr 06/01/22 06/01/22 07:23 07:23 WBC 4.04 L RBC 4.02 L Hgb 12.6 L Hct 37.0 MCV 92 MCH 31 MCHC 34 RDW Coeff of John 13.4 Plt Count 183 Neut % (Auto) 65.2 Lymph % (Auto) 23.5 [place] % (Auto) 9.2 Eos % (Auto) 1.2 Baso % (Auto) 0.7 Neut # (Auto) 2.60 Lymph # (Auto) 0.90 [place] # (Auto) 0.40 Eos # (Auto) 0.00 Baso # (Auto) 0.00 Abs Immat Gran (auto) 0.00 Imm/Tot Granulo (auto) 0.2 Sodium 136 Potassium 3.8 Chloride 106 Carbon Dioxide 25 BUN 13 Creatinine 1.0 Estimated Creat Clear 80.09 Estimated GFR 85 Glucose 88 Calcium 8.5 Total Bilirubin 0.8 AST 29 ALT 37 Alkaline Phosphatase 83 Troponin I < 0.01 L Total Protein 6.3 Albumin 3.4 Procalcitonin 0.06
[2022-06-01] MEDS: 0.9 % SODIUM CHLORIDE 250 ml IV (14:47)
--- NOTE | 2022-06-01 19:50 | PC.NURSE ---
End of Shift: Patient pleasant and cooperative. Patient with initial vitals of day was very hypertensive 200's systolically, MD notified, amlodipine ordered. Lungs clear, BS WNL, IV intact. Patient independent in room, and walked the halls. Patient denies pain. Patient tolerating regular diet, urinating, and had 3 BM's.
[2022-06-01] MEDS: ENOXAPARIN 40 MG/0.4 ML INJ SUBCUT (20:38)
[2022-06-02] VITALS (8 sets, daily range): BP systolic 149–170; BP diastolic 87–98; PULSE 70–82; RESP 16; TEMP 36.2–36.7; O2SAT 94–97
--- NOTE | 2022-06-02 04:27 | PC.NURSE ---
No change in pt's condition. Awaiting bed or discharge.
[2022-06-02 07:39] LABS: Basophils Percent Auto 0.6 % (0.0-3.0); Eosinophils Percent Auto 1.4 % (0.0-7.0); Hematocrit 37.9 % (37.0-53.0); Hemoglobin* 12.9 gm/dL (13.5-17.5); Immature Granulocytes Pct Auto 0.3 %; Lymphocytes Percent Auto 25.1 % (20-44); Mean Corpuscular HGB Conc 34 gm/dL (32-36); Mean Corpuscular Hemoglobin 32 pg (26-34); Mean Corpuscular Volume 92 fL (80-100); Monocytes Percent Auto 10.5 % (0.0-11.0); Neutrophils Percent Auto 62.1 % (42.0-72.0); Platelet Count* 180 K/uL (140-440); RDW Coefficient of Variation % 13.4 % (11.5-15.5); White Blood Count* 3.54 K/uL (4.50-11.00)
[2022-06-02] MEDS: LACTOBACILLUS ACIDOPHILUS 1 TABLET 1 TAB PO ×3 (07:41→18:30)
[2022-06-02 07:43] LABS: Slide Review Reflex No
[2022-06-02 07:56] LABS: Albumin* 3.5 g/dL (3.3-5.0); Chloride* 108 mmol/L (96-114)
[2022-06-02 07:57] LABS: Potassium* 3.9 mmol/L (3.6-5.1); Sodium* 136 mmol/L (135-149)
[2022-06-02 07:59] LABS: Alkaline Phosphatase* 77 U/L (40-150); Aspartate Amino Transferase* 27 U/L (12-35); Bilirubin Total* 0.7 mg/dL (0.1-1.5); Carbon Dioxide* 24 mmol/L (20-32); Creatinine* 0.9 mg/dL (0.5-1.5); Est. Creatinine Clearance* 80.09; Estimated Glomerular Filt Rate 96 ml/min; Total Protein* 6.5 g/dL (6.0-8.3)
[2022-06-02 08:00] LABS: Alanine Aminotransferase* 33 U/L (4-50); Blood Urea Nitrogen* 12 mg/dL (7-30); Calcium* 8.8 mg/dL (8.4-10.6); Glucose* 87 mg/dL (60-115)
[2022-06-02 08:03] LABS: C Reactive Protein* < 0.5 mg/dL (0.5-1.0)
[2022-06-02] MEDS: lisinopriL 20 MG TABLET PO (08:30)
[2022-06-02] MEDS: allopurinoL 100 MG TABLET PO (08:30)
[2022-06-02] MEDS: OMEPRAZOLE 20 MG CAPSULE DR 40 MG PO (08:30)
[2022-06-02] MEDS: AMLODIPINE 5 MG TABLET PO (08:30)
--- NOTE | 2022-06-02 15:34 | P.IMPN_ITS ---
Progress Note: A&P Assessment and plan (1) Endocarditis: Problem details: - concern for this on admission given abnormality noted on TTE, aortic valve - possibly secondary to recent dental work and tooth abscess, also complicated by chronic valvular disease, likely secondary to radiation treatment for lymphoma - on IV Primaxin and vancomycin - current blood cultures NGTD - reviewed case with Dr. Palma, Cardiology on 06/02; recommends adding Lasix. He has arranged outpatient OPAL follow-up next week, Anthony aware of appointment - also reviewed case with Dr. Kevin Verdin of Infectious Disease on 06/02; we reviewed patient's labs and findings. Given persistent negative blood cultures, normal CRP and procalcitonin on admission, afebrile status, and overall reassuring clinical course, Dr. Verdin felt that we could stop antibiotics, repeat TTE inpatient, possibly discharge patient tomorrow with close cardiology follow-up Status: Acute (2) Hypertension: Problem details: - continuing home lisinopril and amlodipine, holding hydrochlorothiazide - goal blood pressure 140-160 systolic, will increase amlodipine if needed - add Lasix per Cardiology on 06/02/22 Status: Chronic (3) Pneumonia: Problem details: - right upper lobe, noted on admission imaging - currently on Primaxin and Vanco; consider discharge on oral antibiotics given right upper lobe pneumonia Status: Acute (4) Non-Hodgkin lymphoma: Problem details: - s/p bone marrow transplant at age 26 Status: Inactive (5) DM2 (diabetes mellitus, type 2): Problem details: - diet controlled, morning blood sugars wnl Status: Chronic (6) CKD (chronic kidney disease): Problem details: - Dr. Velásquez , stage 3b - current GFR 85 Status: Chronic Plan - per above (repeat TTE on 06/03, hold antibiotics at this time, close outpatient Cardiology follow-up with strict return precautions) - patient and daughter updated throughout the day, questions answered Subjective Date Seen: 06/02/22 Interval history: No acute events overnight. Anthony has no concerns for hospitalist team today. Patient is having no chest pain, no dyspnea, no presyncope. He is tolerating IV antibiotics well. Eating well, will shower today as well. Daughter Staci present by phone during visit. Exam Narrative: Exam Narrative: GEN: Alert and oriented, answering questions appropriately HEENT: Normal external ears, EOMIs bilaterally, no scleral icterus CV: RRR, soft systolic murmur heard across precordium, unchanged in quality from admission R: LCTA bilaterally without concerning wheezing, rales, or rhonchi Ext: wwp, no concerning edema Skin: No concerning skin lesions or rashes on exposed skin Neuro: Nonfocal Psych: Appropriate Const: Vital Signs, click to edit/add: Vital Signs - 24 hr 06/01/22 19:22 06/01/22 22:30 06/01/22 22:31 Temperature 98.4 F 98.2 F Pulse Rate 68 Pulse Rate [Left A pical] 67 70 Pulse Rate [Pulse Oximeter] Respiratory Rate 16 16 Blood Pressure [Ri ght Arm] 173/96 H 161/91 H Pulse Oximetry 97 97 Oxygen Delivery Me thod Room Air Room Air 06/01/22 22:32 06/02/22 02:55 06/02/22 07:00 Temperature 98.1 F Pulse Rate Pulse Rate [Left A pical] 70 75 Pulse Rate [Pulse Oximeter] 70 70 Respiratory Rate 16 16 16 Blood Pressure [Ri ght Arm] 170/94 H Pulse Oximetry 95 Oxygen Delivery Me thod Room Air 06/02/22 07:00 06/02/22 11:00 06/02/22 07:00 Temperature 98.1 F 98.0 F Pulse Rate 82 Pulse Rate [Left A pical] Pulse Rate [Pulse Oximeter] 70 73 Respiratory Rate 16 16 Blood Pressure [Ri ght Arm] 162/98 H 164/96 H Pulse Oximetry 95 96 Oxygen Delivery Me thod Room Air Room Air Labs Labs: Laboratory Results - last 24 hr 06/02/22 06/02/22 07:19 07:19 WBC 3.54 L RBC 4.10 L Hgb 12.9 L Hct 37.9 MCV 92 MCH 32 MCHC 34 RDW Coeff of John 13.4 Plt Count 180 Neut % (Auto) 62.1 Lymph % (Auto) 25.1 [place] % (Auto) 10.5 Eos % (Auto) 1.4 Baso % (Auto) 0.6 Neut # (Auto) 2.20 Lymph # (Auto) 0.90 [place] # (Auto) 0.40 Eos # (Auto) 0.00 Baso # (Auto) 0.00 Abs Immat Gran (auto) 0.00 Imm/Tot Granulo (auto) 0.3 Sodium 136 Potassium 3.9 Chloride 108 Carbon Dioxide 24 BUN 12 Creatinine 0.9 Estimated Creat Clear 80.09 Estimated GFR 96 Glucose 87 Calcium 8.8 Total Bilirubin 0.7 AST 27 ALT 33 Alkaline Phosphatase 77 C-Reactive Protein < 0.5 L Total Protein 6.5 Albumin 3.5
[2022-06-02] MEDS: 0.9 % SODIUM CHLORIDE 250 ml IV (15:57)
[2022-06-02] MEDS: ENOXAPARIN 40 MG/0.4 ML INJ SUBCUT (21:05)
--- NOTE | 2022-06-02 22:36 | PC.NURSE ---
Patient denies shortness of breath, chest pain. Up ad que with no c/o. VSS. Echo completed. Per MD no further antibiotics. nurse monitoring NSR. Declined dinner as he generally eats a large lunch and then is good for the day. Patient requests that he be left to sleep for the majority of the night. Will attempt to minimize waking patient per his request. Has refused SCDS, understands the risk of not wearing these.
[2022-06-03] VITALS: PULSE 70
[2022-06-03 03:00] VITALS: BP 155/84; PULSE 64; RESP 16; TEMP 36.5; O2SAT 92
--- NOTE | 2022-06-03 06:06 | PC.NURSE ---
+Shift note: Pt has been sleeping very well tonight. No chest pain, N/V/D. Independent in room. V/S has been stable except high systolic Bp
[2022-06-03 07:00] VITALS: BP 149/82; PULSE 82; RESP 18; TEMP 36.6; O2SAT 96
[2022-06-03 08:00] VITALS: PULSE 86
[2022-06-03] MEDS: LACTOBACILLUS ACIDOPHILUS 1 TABLET 1 TAB PO ×2 (08:30→11:47)
[2022-06-03] MEDS: OMEPRAZOLE 20 MG CAPSULE DR 40 MG PO (09:21)
[2022-06-03] MEDS: DOXYCYCLINE HYCLATE 100 MG CAPSULE PO (09:21)
[2022-06-03] MEDS: FUROSEMIDE 40 MG TABLET 20 MG PO (09:21)
[2022-06-03] MEDS: lisinopriL 20 MG TABLET PO (09:21)
[2022-06-03] MEDS: AMLODIPINE 5 MG TABLET PO (09:21)
[2022-06-03] MEDS: allopurinoL 100 MG TABLET PO (09:21)
[2022-06-03 11:00] VITALS: BP 168/96; PULSE 75; RESP 14; TEMP 36.5; O2SAT 96
--- NOTE | 2022-06-03 12:00 | P.DS_ITS ---
DS: Providers Provider Date Seen: 06/03/22 Date of admission: 05/30/22 20:36 Primary care physician: Comfort Mae PA-C Admitting Clinician: Jennyfer Casas MD Attending Physician on discharge: Jennyfer Casas MD Date of Discharge: 06/03/22 DS: Diagnosis Discharge Diagnosis (1) Pneumonia: Status: Acute Problem details: Right upper lobe pneumonia likely cause of dyspnea, fatigue and malaise. Much improved with treatment. 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 Valvular abnormalities also possibly related to radiation. Repeat echo showed no change (3) Endocarditis: Status: Acute Problem details: Endocarditis diagnosis is not confirmed. - concern for this on admission given abnormality noted on TTE, aortic valve - possibly secondary to recent dental work and tooth abscess, also complicated by chronic valvular disease, likely secondary to radiation treatment for lymphoma - on IV Primaxin and vancomycin during hospital stay now discontinued - blood cultures have shown no growth. - reviewed case with Dr. Palma, Cardiology on 06/02; recommends adding Lasix. He has arranged outpatient OPAL follow-up next week, Anthony aware of appointment - also reviewed case with Dr. Kevin Verdin of Infectious Disease on 06/02; we reviewed patient's labs and findings. Given persistent negative blood cultures, normal CRP and procalcitonin on admission, afebrile status, and overall reassuring clinical course, Dr. Verdin felt that we could stop antibiotics. Repeat transthoracic echo shows no change in the valves. Clinically low suspicion for endocarditis at this time. Outpatient followup with Cardiology. DS: Summary Hospital Course Hospital Course: Patient underwent oral surgery 1 week ago. Following this he was placed on clindamycin for suspected infection. He then developed shortness of breath and fatigue and malaise. Admitted with a diagnosis of right upper lobe pneumonia. There was concern for endocarditis an echocardiogram did show possible endocarditis on aortic and mitral valves. It was unclear at the beginning whether these changes in his valves were related to prior radiation therapy to his chest or due to vegetations from endocarditis. His blood cultures were negative. Clinically his symptoms of illness resolved. Conversation with Cardiology and Infectious Disease led to the conclusion that he would be evaluated as an outpatient with a OPAL. He will be continued on a short course of doxycycline to finish treatment for pneumonia. Status at Discharge Functional status at discharge: independent ambulation Overall status at discharge: patient is back to baseline Time Spent with Patient Time attestation: Total time spent providing and/or coordinating discharge services: Time spent: Greater than 30 minutes Exam Narrative: Exam Narrative: He is alert and appears in no distress. Respirations are clear to auscultation. Cardiovascular: S1, S2, 2/6 systolic murmur heard best at the right upper sternal border. No gallop or rub. Abdomen is soft without tenderness or mass. Const: Vital Signs, click to edit/add: Vital Signs - 24 hr 06/02/22 16:33 06/02/22 16:00 06/02/22 21:15 Temperature 97.3 F L 97.2 F L Pulse Rate 75 Pulse Rate [Left A pical] 75 72 Pulse Rate [Pulse Oximeter] Respiratory Rate 16 16 Blood Pressure [Ri ght Arm] 164/96 H 149/87 H Pulse Oximetry 94 97 Oxygen Delivery Me thod Room Air Room Air 06/02/22 16:30 06/02/22 23:00 06/03/22 00:00 Temperature Pulse Rate 70 Pulse Rate [Left A pical] 75 72 Pulse Rate [Pulse Oximeter] 73 Respiratory Rate 16 Blood Pressure [Ri ght Arm] Pulse Oximetry Oxygen Delivery Me thod 06/02/22 23:00 06/03/22 03:00 06/03/22 07:00 Temperature 97.8 F 97.7 F Pulse Rate Pulse Rate [Left A pical] Pulse Rate [Pulse Oximeter] 70 64 82 Respiratory Rate 16 16 18 Blood Pressure [Ri ght Arm] 163/88 H 155/84 H Pulse Oximetry 94 92 Oxygen Delivery Nc thod Room Air Room Air 06/03/22 07:00 06/03/22 08:00 06/03/22 11:00 Temperature 97.9 F 97.7 F Pulse Rate 86 Pulse Rate [Left A pical] Pulse Rate [Pulse Oximeter] 82 75 Respiratory Rate 18 14 Blood Pressure [Ri ght Arm] 149/82 H 168/96 H Pulse Oximetry 96 96 Oxygen Delivery Nc thod Room Air Room Air Documenting provider has reviewed patient's vital signs: yes DS: Data Data Completed and Pending Labs on day of discharge: Preliminary micro results at discharge 06/01/22 07:33 Blood Culture - Preliminary Blood NO GROWTH AFTER 48 HOURS 06/01/22 07:23 Blood Culture - Preliminary Blood NO GROWTH AFTER 48 HOURS 06/02/22 07:25 Blood Culture - Preliminary Blood NO GROWTH AFTER 24 HOURS 06/02/22 07:19 Blood Culture - Preliminary Blood NO GROWTH AFTER 24 HOURS 05/30/22 15:20 Blood Culture - Preliminary Blood - Picc Line NO GROWTH AFTER 72 HOURS 05/30/22 15:20 Blood Culture - Preliminary Blood - Picc Line NO GROWTH AFTER 72 HOURS Discharge Plan Discharge Disposition: Home, Self-Care Date of Admission: 05/30/22 20:36 Attending Provider on Discharge: Chris Farfan Primary Care Provider: Comfort Mae Condition: Unchanged Anticipated Discharge Date/Time: 06/03/22 12:05 Discharge Medications: New furosemide 40 mg Tablet 20 mg PO DAILY@0800 Qty: 30 0RF Rx Instructions: please substitute for 20mg tabs and have patient take one/day amlodipine 5 mg Tablet 5 mg PO Q24H Qty: 30 0RF doxycycline hyclate 100 mg Capsule 100 mg PO BID Qty: 10 0RF Continued allopurinol 100 mg tablet 100 mg PO QDAY omeprazole 40 mg capsule,delayed release(DR/EC) 40 mg PO QDAY lisinopril 20 mg tablet 20 mg PO QDAY Qty: 90 0RF amlodipine 5 mg tablet 5 mg PO .QHS Qty: 90 0RF Discontinued clindamycin HCl 300 mg capsule 300 mg PO Q6H Label Comments: TAKE ONE CAPSULE BY MOUTH EVERY SIX HOURS hydrochlorothiazide 25 mg tablet 25 mg PO QDAY Qty: 90 0RF Discharge Orders: Discharge Order (Routine); Ordered 06/03/22 Ordered By: Chris Farfan Additional Instructions: Follow-up with Cardiology as arranged for next week. Activity Level: Activity as Tolerated Discharge Diet: Regular Follow Up Appointments: Comfort Mae PA-C [Primary Care Provider] - (Follow-up in 2 weeks.) Forms: [employer] Info Instructions
--- NOTE | 2022-06-03 15:11 | PC.NURSE ---
Discharge: Patient pleasant and cooperative. Patient vitally stable, lung clear, BS WNL, IV removed, catheter intact. Patient independent in room. Patient denied pain. Tele=NSR. Patient signed belongings sheet and discharge form. Patient had no further questions regarding discharge. Patient left the floor by foot with daughter and belongings at 1441.
== END 2022-06-03 14:41 | disposition home or self-care (01) | DRG 194 ==
LOC: ED 16:48 → MEDSURG 17:35
PROVIDERS: Family Medicine; Admitting Provider Family Medicine; Emergency Provider Family Medicine; PCP Physician Assistant Medical; Visit Provider Family Medicine
DX: J18.9 Pneumonia, unspecified organism (principal); Z94.81 Bone marrow transplant status; I35.0 Nonrheumatic aortic (valve) stenosis; Z85.72 Personal history of non-Hodgkin lymphomas; J84.10 Pulmonary fibrosis, unspecified; I12.9 Hypertensive chronic kidney disease with stage 1 through stage 4 chronic kidney disease, or unspecified chronic kidney disease; E11.22 Type 2 diabetes mellitus with diabetic chronic kidney disease; N18.32 Chronic kidney disease, stage 3b; K21.9 Gastro-esophageal reflux disease without esophagitis; M10.9 Gout, unspecified
CPT/HCPCS: 36415; 71045; 71260; 80048; 80053; 81001; 83735; 83880; 84145; 84484; 85025; 85379; 86140; 87040; 87502; 87634; 87635; 93005; 93306; 94761; 99284; 99285; A9270; J0743; J1650; J3370; J7030; J7050; J7120; Q9967

== ENCOUNTER 2022-06-17 11:04 | Outpatient (CLI) | payer OTHER, SELFPAY ==
[2022-06-17 22:20] LABS: Chloride* 106 mmol/L (96-114); Potassium* 4.4 mmol/L (3.6-5.1); Sodium* 138 mmol/L (135-149)
[2022-06-17 22:23] LABS: Carbon Dioxide* 26 mmol/L (20-32); Creatinine* 1.3 mg/dL (0.5-1.5); Estimated Glomerular Filt Rate 62 ml/min
[2022-06-17 22:24] LABS: Blood Urea Nitrogen* 23 mg/dL (7-30); Calcium* 8.8 mg/dL (8.4-10.6); Glucose* 90 mg/dL (60-115)
== END 2022-06-17 11:05 | disposition home or self-care (01) ==
LOC: FRMREF 11:05
PROVIDERS: PCP Physician Assistant Medical; Visit Provider Physician Assistant Medical
DX: E11.9 Type 2 diabetes mellitus without complications (principal); I10 Essential (primary) hypertension
CPT/HCPCS: 80048

== ENCOUNTER 2022-12-26 19:23 | Outpatient (CLI) | payer BC, SELFPAY ==
--- OUTSIDE RECORDS SUMMARY | 2022-12-26 19:25 | XMS_ITS | Continuity of Care Document ---
Author Name Unknown Organization [facility] Address [address] [address] [place] [address] Phone Care Team Providers Care Employee Operations Examiner Name Role Phone Unavailable Unavailable Unavailable Advance Directives Directive Yes / No Effective Date File Name No Information Encounters Encounter Description Practice Location Reason(s) For Visit Diagnoses Date Provider Providers Copied on Encounter [facility], [address] [address], [place], [place], [id number], tel:[phone] [facility] No Information No Information Referring Provider: Jonah Verduzco MD L, [address] [place], [address]. tel:[phone] Family History Family Member Type Diagnosis Age At Onset No Information Payers Payer name Insurance type Covered constitution party ID Authoriza tion(s) No Information Social History Type Description Quantity Date Captured Comments Sex Male Smoking Status No Information Chief Complaint And Reason For Visit No Information Reason For Referral Reason For Referral No Information Plan Of Treatment Date Type Action Status No Information History Of Present Illness Encounter Date Complaint History Of Prese nt Illness No Information Functional Status Date Functional Assessmen t No Information Instructions Date Instruction Additional Infor mation No Information Assessments Type Assessment Date No Information Patient Care Teams Name Effective Dates (start - stop) Status Members No Information
--- NOTE | 2023-01-10 08:42 | W.PM.SLEEP ---
Sleep Study Details Details Interpreting Provider: Nora Date of Sleep Study: 12/26/22 Sleep Study Details: STUDY TYPE:? Home unattended ? BMI:? 29.9 ORDERING PROVIDER:Belgica Melendez INDICATION:? Concerns about sleep apnea ? SLEEP SUMMARY:? 507.5 minutes monitored RESPIRATORY SUMMARY:? AHI 12.8, supine 34.7, left lateral 10.8, right lateral 3.6 Low oxygen 83 4.4% of study oxygen less than 90% No snoring was noted PERIODIC LIMB MOVEMENTS OF SLEEP:? Not recorded during home study CARDIAC:? Range 56-104, mean 65.3 IMPRESSION:? 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
== END 2022-12-26 19:24 | disposition home or self-care (01) ==
LOC: SLEEP 19:24
PROVIDERS: PCP Physician Assistant Medical; Visit Provider Otolaryngology
DX: G47.33 Obstructive sleep apnea (adult) (pediatric) (principal)
CPT/HCPCS: 95806

== ENCOUNTER 2023-01-09 13:52 | Outpatient (CLI) | payer BC, SELFPAY | END 2023-01-09 13:53 | disposition home or self-care (01) | LOC: NFLDREF 01-11 05:25 | PROVIDERS: PCP Physician Assistant Medical; Referring Provider Physician Assistant Medical; Visit Provider Physician Assistant Medical | DX: E87.6 Hypokalemia (principal); M79.89 Other specified soft tissue disorders | CPT/HCPCS: 84132 ==

== ENCOUNTER 2023-02-02 15:07 | Outpatient (CLI) | payer BC, SELFPAY ==
--- NOTE | 2023-02-02 15:30 | CRLHL7_ITS ---
For Patients: As a result of the Century Cures Act, medical imaging exams and procedure reports are released immediately into your electronic medical record. You may view this report before your referring provider. If you have questions, please contact your health care provider. INDICATION: Diplopia TECHNIQUE: Noncontrast Sagittal T1,Axial FSE T2, Flair, DWI images submitted. No comparisons. FINDINGS: Very mild cerebral atrophy. The ventricles, sulci and gyri are of normal size, shape and contour for age and degree of atrophy. Midline structures are centrally located. No convincing evidence of suspicious intra- or extra-axial fluid collections. Very mild scattered foci of increased T2 signal within the periventricular and subcortical white matter of both cerebral hemispheres. No regions of restricted diffusion. Globes bilaterally appear within normal limits. IMPRESSION: 1. No radiographic evidence of acute intracranial abnormalities. 2. Very mild cerebral atrophy. 3. Very mild supratentorial white matter changes that are non-specific, but statistically most likely related to chronic small vessel ischemic disease. Dictated by Joby Mccallum MD @ 02/02/2023 6:23:11 PM (Electronically Signed)
== END 2023-02-02 15:08 | disposition home or self-care (01) ==
LOC: MRI 15:08
PROVIDERS: PCP Physician Assistant Medical; Visit Provider Physician Assistant Medical
DX: H53.2 Diplopia (principal); G31.9 Degenerative disease of nervous system, unspecified
CPT/HCPCS: 70551

== ENCOUNTER 2023-11-17 12:42 | Outpatient (CLI) | payer BC, SELFPAY ==
--- OUTSIDE RECORDS SUMMARY | 2023-11-17 12:44 | XMS_ITS | Encounter Summary ---
Author Name Unknown Organization [place] Address [address] [facility] [place] [address] Care Team Providers Care Mechanical Maintenance Instructor Name Role Phone Sumanth Caicedo MD Primary Care Provider + Sumanth Caicedo MD Unavailable [phone] Sumanth Caicedo MD Unavailable [phone] Oskar Oliva DPM Unavailable [phone] [facility]- Primary Care Provider Encounter Details Date Type Department Care Team (Late st Contact Info) Description 03/11/2016 MyC Medical Advice [address], [address] [place] [address] Tabatha Whitaker, [facility] Social History Tobacco Use Types Packs/Day Years Used Date Smoking Tobacco: Never Smokeless Tobacco: Never Alcohol Use Standard Drinks/Week Comments Yes 0 (1 standard drink = 0.6 oz pure alcohol) drinks beer a couple times a wk. Sex and Gender Information Value Date Recorded Sex Assigned at Not on file Gender Identity Not on file Sexual Orientation Not on file documented as of this encounter Plan of Treatment Not on file documented as of this encounter Visit Diagnoses Not on filedocumented in this encounter Care Teams Mechanical Maintenance Instructor Relationship Specialty Start Date End Date Sumanth Caicedo MD PCP - General Family Practice 02/13/15 10/11/20 [place] [id number] [address] [address] PCP - Assigned PCP 01/19/14 09/04/18 [facility] [address], [place] [address] PCP - General 10/12/20 [place] [address] [address] [address] Assigned PCP 01/19/14 05/02/20 Oskar Oliva DPM [address] [facility] [address] [place] [address] Assigned Musculoskeletal Provider 04/24/20 07/25/20 documented as of this encounter
--- OUTSIDE RECORDS SUMMARY | 2023-11-17 12:44 | XMS_ITS | Encounter Summary ---
Author Name Unknown Organization [place] Address [address] [facility] [place] [address] Care Team Providers Care Automatic Shirring Machine Operator Name Role Phone Sumanth Caicedo MD Primary Care Provider + [facility]- Primary Care Provider Encounter Details Date Type Department Care Team (Late st Contact Info) Description 09/22/2020 Documentation Only INTERFACED REPORT Unknown, Provider Social History Tobacco Use Types Packs/Day Years Used Date Smoking Tobacco: Never Smokeless Tobacco: Never Alcohol Use Standard Drinks/Week Comments Yes 0 (1 standard drink = 0.6 oz pure alcohol) drinks beer a couple times a wk. PHQ-2 Answer Date Recorded PHQ-2 Score 0 07/10/2018 Sex and Gender Information Value Date Recorded Sex Assigned at Not on file Gender Identity Not on file Sexual Orientation Not on file documented as of this encounter Plan of Treatment Not on file documented as of this encounter Visit Diagnoses Not on filedocumented in this encounter Care Teams Automatic Shirring Machine Operator Relationship Specialty Start Date End Date Sumanth Caicedo MD PCP - General Family Practice 02/13/15 10/11/20 [facility]- [address] [place] [address] PCP - General 10/12/20 documented as of this encounter
--- OUTSIDE RECORDS SUMMARY | 2023-11-17 12:44 | XMS_ITS | Encounter Summary ---
Author Name Unknown Organization [place] Address [address] [facility] [place] [address] Care Team Providers Care Manager Research And Development Name Role Phone Sumanth Caicedo MD Primary Care Provider + Sumanth Caicedo MD Unavailable [phone] Sumanth Caicedo MD Unavailable [phone] Oskar Oliva DPM Unavailable [phone] [facility]- Primary Care Provider Encounter Details Date Type Department Care Team (Late st Contact Info) Description 10/09/2017 MyC Medical Advice [address], [address] [place] [address] [place] Vargas, [facility] Social History Tobacco Use Types Packs/Day Years [...] on filedocumented in this encounter Care Teams Manager Research And Development Relationship Specialty Start Date End Date Sumanth Caicedo MD PCP - General Family Practice 02/13/15 10/11/20 [place] [address] [address] [address] PCP - Assigned PCP 01/19/14 09/04/18 [facility]- [address], [place] [address] PCP - General 10/12/20 [place] [address] [address] [address] Assigned PCP 01/19/14 05/02/20 Oskar Oliva DPM [address] [facility] [address] [place] [address] Assigned Musculoskeletal Provider 04/24/20 07/25/20 documented as of this encounter
--- OUTSIDE RECORDS SUMMARY | 2023-11-17 12:44 | XMS_ITS | Encounter Summary ---
Author Name Unknown Organization [place] Address [address] [place] [address] Care Team Providers Care Physical Security Specialist Name Role Phone Sumanth Caicedo MD Primary Care Provider + Sumanth Caicedo MD Unavailable [phone] Sumanth Caicedo MD Unavailable [phone] Oskar Oliva DPM Unavailable [phone] [facility]- Primary Care Provider Reason for Visit * Reason Onset Date Comments Medication Refill 09/25/2017 hydrochlorothi azide (HYDRODIURIL) 25 MG tablet Encounter Details Date Type Department Care Team (Late st Contact Info) Description 09/24/[address], [address] [place] [address] [place] [address] [address] [place], [place] [id number] Medication Refill (hydrochlorothiazide (HYDRODIURIL) 25 MG tablet) Social History Tobacco Use Types Packs/Day Years [...] on file documented as of this encounter Miscellaneous Notes * Telephone Encounter - [place] Vargas CMA - 10/09/2017 11:52 AM CDT MyChart message sent. [place] Vargas CMA (AAMA) * Telephone Encounter - [place] Vargas CMA - 10/06/2017 11:02 AM CDT Left message for patient to return call. [place] Vargas CMA (AAMA) * Telephone Encounter - Lauren Curtis MA - 10/02/2017 4:30 PM CDT LMTRC to clinic. Lauren Curtis MA * Telephone Encounter - Sumanth Caicedo MD - 09/27/2017 8:55 AM CDT One month fill provided, pt will need f/u appt for ongoing refill. Please call to arrange CPE. Sumanth Caicedo MD * Telephone Encounter - Clare Dhillon RN - 09/25/2017 4:25 PM CDT LM on to call back. Patient due for annual physical with HTN f/u. Routing refill request to provider for review/approval because: Labs not current: IVELISSE Solorzano RN, BSN, PHN Teagan Villalta RN * Telephone Encounter - Elizabeth Luz - 09/25/2017 9:03 AM CDT Requested Prescriptions Pending Prescriptions Disp Refills ??? hydrochlorothiazide (HYDRODIURIL) 25 MG tablet [Pharmacy Med Name: HYDROCHLOROTHIAZIDE 25 MG TAB] 90 tablet 0 Last Written Prescription Date: 06/29/17 Last Fill Quantity: 90, # refills: 0 Last Office Visit: 04/26/2017 Future Office Visit: Sig: TAKE 1 TABLET (25 MG) BY MOUTH DAILY Diuretics (Including Combos) Protocol Failed 09/24/2017 11:31 AM Failed - Normal serum creatinine on file in past 12 months Recent Labs Lab Test 05/31/16 0911 CR 1.36* Failed - Normal serum potassium on file in past 12 months Recent Labs Lab Test 05/31/16 0911 POTASSIUM 4.0 Failed - Normal serum sodium on file in past 12 months Recent Labs Lab Test 05/31/16 0911 NA 135 Passed - Blood pressure under 140/90 in past 12 months BP Readings from Last 3 Encounters: 04/26/17 128/82 06/27/16 124/80 05/31/16 126/82 Passed - Recent (12 mo) or future (30 days) visit within the authorizing provider's specialty Patient had office visit in the last 12 months or has a visit in the next 30 days with authorizing provider or within the authorizing provider's specialty. See Patient Info tab in inbasket, or Choose Columns in Meds & Orders section of the refill encounter. Passed - Patient is age 18 or older documented in this encounter Plan of Treatment Not on file documented as of this encounter Visit Diagnoses Diagnosis Essential hypertension with goal blood pressure less than 140/90 Edema of both legs Edema documented in this encounter Care Teams Physical Security Specialist Relationship Specialty Start Date End Date Sumanth Caicedo MD PCP - General Family Practice 02/13/15 10/11/20 [place] [address] [address] [facility] [place] [address] PCP - Assigned PCP 01/19/14 09/04/18 [facility]- [address], [place] [address] PCP - General 10/12/20 [place] [address] [facility] [place] [address] Assigned PCP 01/19/14 05/02/20 Oskar Oliva DPM [address] [address] Assigned Musculoskeletal Provider 04/24/20 07/25/20 documented as of this encounter
--- OUTSIDE RECORDS SUMMARY | 2023-11-17 12:44 | XMS_ITS | Referral Summary ---
Author Name Unknown Organization [place] Address [address] [facility] [place] [address] Care Team Providers Care Duct Layer Name Role Phone [facility]- Primary Care Provider Allergies Active Allergy Reactions Criticality Noted Date Comments Amoxicillin Rash Low 08/13/2008 Medications Medication Sig Dispensed Refills Start Date End Date Status omeprazole (PRILOSEC) 40 MG capsuleIndications:G astroesophageal reflux disease, esophagitis presence not specified Take 1 capsule (40 mg) by mouth daily Take 30-60 minutes before a meal. 90 capsule 3 01/13/2017 Active hydrochlorothiazide (HYDRODIURIL) 25 MG tabletIndications:Es sential hypertension with goal blood pressure less than 140/90,Edema of both legs TAKE 1 TABLET (25 MG) BY MOUTH DAILY 30 tablet 09/27/2017 Active lisinopril (PRINIVIL/ZESTRIL) 10 MG tabletIndications:Es sential hypertension with goal blood pressure less than 140/90 TAKE 1 TABLET (10 MG) BY MOUTH DAILY 30 tablet 09/27/2017 Active doxycycline hyclate (VIBRAMYCIN) 100 MG capsule Take 100 mg by mouth 2 times daily Active order for DMEIndications:Plant ar fasciitis Equipment being ordered: size 14 tall Aircast boot 1 Device 12/21/2018 Active Active Problems Problem Noted Date Diagnosed Date Advanced directives, counseling/discussion 04/26 Overview: Advance Care Planning 04/26/2017: ACP Review of Chart / Resources Provided: Reviewed chart for advance care plan. Jeffery [place] has been provided information and resources to begin or update their advance care plan. 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 Essential hypertension with goal blood pressure less than 140/90 02/23/2016 Elevated serum creatinine 02/23/2016 Health Skilled Nursing 01/16/2011 Overview: x DX V65.8 REPLACED WITH [facility]047 [facility] (10/08/2012) CARDIOVASCULAR SCREENING; LDL GOAL LESS THAN 160 05/02/2010 Varicose veins of legs 01/07/2009 Nasal congestion 08/13/2008 GERD (gastroesophageal reflux disease) 8 Male impotence 02/27/2008 Resolved Problems Problem Noted Date Diagnosed Date Resolved Date HTN, goal below 140/90 12/31/201202/22 Cellulitis of elbow 07/11/2012 01/07/20 14 Cellulitis 06/26/2012 01/06/2014 HTN (hypertension) 4 Overview: (Problem list name updated by automated process. Provider to review and confirm.) Immunizations Name Administration Dates Next Due COVID-19 MONOVALENT 12+ (Pfizer) 10/12/2020,09/01 TDAP Vaccine (Adacel) 02/25/2009 Social History Tobacco Use Types Packs/Day Years Used Date Smoking Tobacco: Never Smokeless Tobacco: Never Tobacco Cessation:Counseling Given: Yes Alcohol Use Standard Drinks/Week Comments Yes 0 (1 standard drink = 0.6 oz pure alcohol) drinks beer a couple times a wk. PHQ-2 Answer Date Recorded PHQ-2 Score 0 07/10/2018 Adolescent Education Answer Date Record ed Getting School Help Needed Not on file 04/07 Sex and Gender Information Value Date Recorded Sex Assigned at Not on file Gender Identity Not on file Sexual Orientation Not on file Last Filed Vital Signs Vital Sign Reading Time Taken Comments Blood Pressure 130/84 01/18/2019 8:15 AM CDT Pulse 74 09/24/2018 5:00 AM CDT Temperature 36.8 ??C (98.2 ??F) 09/24/2018 2:26 AM CD T Respiratory Rate 18 09/24/2018 5:00 AM CDT Oxygen Saturation 97% 09/24/2018 5:00 AM CDT Inhaled Oxygen Concentration - - Weight 129.3 kg (285 lb) 01/18/2019 8:15 AM CDT Height 200.7 cm (6' 7) 01/18/2019 8:15 AM CDT Body Mass Index 32.11 01/18/2019 8:15 AM CDT Plan of Treatment Not on file Procedures Procedure Name Priority Date/Time Associated Diagnosis Comments COMPREHENSIVE METABOLIC PANEL Routine 05/31/2016 9:11 AM WOOL WASHER FEEDER Dizziness HEPATITIS C SCREEN REFLEX TO HCV RNA QUANT AND GENOTYPE Routine 01/12/2016 1:32 PM CDT Need for hepatitis C screening test LIPID REFLEX TO DIRECT LDL PANEL Routine 01/12/2016 1:32 PM CDT CARDIOVASCULAR SCREENING; LDL GOAL LESS THAN 160 from Last 3 Months or Most Recently Relevant to Health Maintenance Results * (ABNORMAL) Comprehensive metabolic panel (05/31/2016 9:11 AM WOOL WASHER FEEDER) Sodium 135 133 - 144 mmol/L [facility][1] Potassium 4.0 3.4 - 5.3 mmol/L [facility][1] Chloride 101 94 - 109 mmol/L [facility][1] Carbon Dioxide 23 20 - 32 mmol/L [facility][1] Anion Gap 11 3 - 14 mmol/L [facility][1] Glucose 89 70 - 99 mg/dL [facility][1] Urea Nitrogen 24 7 - 30 mg/dL [facility][1] Creatinine 1.36(H) 0.66 - 1.25 mg/dL [facility][1] GFR Estimate 54(L) >60 mL/min/1. 7m2 [facility][1] Comment:Non GFR Calc GFR Estimate If Black 65 >60 mL/min/1. 7m2 [facility][1] Comment: GFR Calc Calcium 9.6 8.5 - 10.1 mg/dL [facility][1] Bilirubin Total 0.7 0.2 - 1.3 mg/dL [facility][1] Albumin 3.7 3.4 - 5.0 g/dL [facility][1] Protein Total 7.7 6.8 - 8.8 g/dL [facility][1] Alkaline Phosphatase 70 40 - 150 U/L [facility][1] ALT 32 0 - 70 U/L [facility][1] AST 24 0 - 45 U/L [facility][1] Blood specimen (specimen) 05/31/2016 9:11 AM WOOL WASHER FEEDER 05/31/2016 9:12 AM WOOL WASHER FEEDER Sumanth Caicedo MD LAB - BLOOD ORDJake MANE [facility][1] [address] [place] [address] * Hepatitis C Screen Reflex to HCV RNA Quant and Genotype (01/12/2016 1:32 PM CDT) Hepatitis C Antibody Nonreactive Assay performance characteristics have not been established for newborns, infants, and children NR [facility] Blood specimen (specimen) 01/12/2016 1:32 PM CDT 01/12/2016 1:33 PM CDT Sumanth Caicedo MD LAB - BLOOD ORDJake MANE [facility] [address] [place] [address] * (ABNORMAL) Lipid panel reflex to direct LDL (01/12/2016 1:32 PM CDT) Cholesterol 199 <200 mg/dL [facility] Triglycerides 109 <150 mg/dL [facility] HDL Cholesterol 73 >39 mg/dL [facility] LDL Cholesterol Calculated 104(H) <100 mg/dL [facility] Comment: Above desirable: ??100-129 mg/dl Borderline High: ??130-159 mg/dL High: ? 160-189 mg/dL Very high: ? >189 mg/dl Non HDL Cholesterol 126 <130 mg/dL [facility] Blood specimen (specimen) 01/12/2016 1:32 PM CDT 01/12/2016 1:33 PM CDT Sumanth Caicedo MD LAB - BLOOD ALLISON [place] Organization Address City/State/ZIP Co de Phone Number [facility] [address] [address], [facility] [phone] from Last 3 Months or Most Recently Relevant to Health Maintenance Advance Directives For more information, please contact: [phone] * Full Code (Latest Code Status on File) Date Activated Date Inactivated Comments 06/26/2012 3:06 PM 06/29/2012 4:41 PM Care Teams Duct Layer Relationship Specialty Start Date End Date [facility]- [address] [place] [address] PCP - General 10/12/20
--- OUTSIDE RECORDS SUMMARY | 2023-11-17 12:44 | XMS_ITS | Clinical Summary ---
Author Name Unknown Organization [place] Address [address] [facility] [place] [address] Care Team Providers Care Dental Equipment Technician Name Role Phone [facility]- Primary Care Provider Allergies Active Allergy Reactions [...] Reviewed chart for advance care plan. Jeffery [place] has been provided information and resources to begin or update their advance care plan. 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 Essential hypertension with goal blood pressure less than 140/90 02/23/2016 Elevated serum creatinine 02/23/2016 Health Intermediate 01/16/2011 Overview: x DX V65.8 REPLACED WITH [facility]65 [facility] (10/08/2012) CARDIOVASCULAR SCREENING; LDL GOAL LESS THAN [...] 12+ (Pfizer) 10/12/2020,09/01 TDAP Vaccine (Adacel) 02/25/2009 Family History Medical History Relation Comments Cancer Father Bone Diabetes Father Neurologic Disorder Father MS Psychotic Disorder Mother Christian a Neurologic Disorder Sister 1 MS Relation Status Comments Brother Alive Father Maternal Grandfather Maternal Grandmother Mother Paternal Grandfather Paternal Grandmother Sister 1 Sister 2 (Age 39) Suicide Social History Tobacco Use Types Packs/Day Years [...] 01/18/2019 8:15 AM CDT Plan of Treatment Health Maintenance Due Date Last Done Comments ANNUAL REVIEW OF HM ORDERS 1960 CT COLONOGRAPHY 1958 FIT 1960 FLEX SIG 1960 YEARLY PREVENTIVE VISIT 1958 sDNA (Cologuard) 1960 Pneumococcal Vaccine: Pediatrics (0 to 5 Years) and At-Risk Patients (6 to 64 Years) (1 of 2 - PCV) 1964 COLONOSCOPY 1968 COLORECTAL CANCER SCREENING 1968 HIV SCREENING 1973 ZOSTER IMMUNIZATION (1 of 2) 1977 BMP 05/31/2017 05/31/2016, 02/01, 01/12/2016, Additional history exists RSV VACCINE ( & 60+) (1 - 1-dose 60+ series) 2018 DTAP/TDAP/TD IMMUNIZATION (2 - Td or Tdap) 02/25/2019 02/25/2009 GLUCOSE 05/31/2019 05/31/2016, 02/01, 01/12/2016, Additional history exists COVID-19 Vaccine (3 - Pfizer risk series) 11/09/2020 10/12/2020, 09/21/2020 LIPID 01/11/2021 01/12/2016, 04/14/2010 ADVANCE CARE PLANNING 04/26/2022 04/26/2017, 017 PHQ-2 (once per calendar year) 2023 01/08/2016 INFLUENZA VACCINE (Season Ended) 2024 HEPATITIS C SCREENING Completed 01/12/2016 HPV IMMUNIZATION Aged Out No longer e ligible based on patient's age to complete this topic IPV IMMUNIZATION Aged Out No longer e ligible based on patient's age to complete this topic MENINGITIS IMMUNIZATION Aged Out No l onger eligible based on patient's age to complete this topic RSV MONOCLONAL ANTIBODY Aged Out No l onger eligible based on patient's age to complete this topic Procedures Procedure Name Priority Date/Time Associated Diagnosis Comments COMPREHENSIVE METABOLIC PANEL Routine 05/31/2016 9:11 AM DIGITAL DESIGNER Dizziness HEPATITIS C SCREEN REFLEX TO HCV RNA QUANT AND GENOTYPE Routine 01/12/2016 1:32 PM CDT Need for hepatitis C screening test LIPID REFLEX TO DIRECT LDL PANEL Routine 01/12/2016 1:32 PM CDT CARDIOVASCULAR SCREENING; LDL GOAL LESS THAN 160 from Last 3 Months or Most Recently Relevant to Health Maintenance Results * (ABNORMAL) Comprehensive metabolic panel (05/31/2016 9:11 AM DIGITAL DESIGNER) Sodium 135 133 - 144 mmol/L [facility] Potassium 4.0 3.4 - 5.3 mmol/L [facility] Chloride 101 94 - 109 mmol/L [facility] Carbon Dioxide 23 20 - 32 mmol/L [facility] Anion Gap 11 3 - 14 mmol/L [facility] Glucose 89 70 - 99 mg/dL [facility] Urea Nitrogen 24 7 - 30 mg/dL [facility] Creatinine 1.36(H) 0.66 - 1.25 mg/dL [facility] GFR Estimate 54(L) >60 mL/min/1. 7m2 [facility] Comment:Non GFR Calc GFR Estimate If Black 65 >60 mL/min/1. 7m2 [facility] Comment: GFR Calc Calcium 9.6 8.5 - 10.1 mg/dL [facility] Bilirubin Total 0.7 0.2 - 1.3 mg/dL [facility] Albumin 3.7 3.4 - 5.0 g/dL [facility] Protein Total 7.7 6.8 - 8.8 g/dL [facility] Alkaline Phosphatase 70 40 - 150 U/L [facility] ALT 32 0 - 70 U/L [facility] AST 24 0 - 45 U/L [facility] Blood specimen (specimen) 05/31/2016 9:11 AM DIGITAL DESIGNER 05/31/2016 9:12 AM DIGITAL DESIGNER Sumanth Ciacedo MD LAB - BLOOD ALLISON [facility]E [facility] [address] [place], [place] [address] * Hepatitis C Screen Reflex to HCV RNA Quant and Genotype (01/12/2016 1:32 PM CDT) Hepatitis C Antibody Nonreactive Assay performance characteristics have not been established for newborns, infants, and children NR [facility] Blood specimen (specimen) 01/12/2016 1:32 PM CDT 01/12/2016 1:33 PM CDT Sumanth Caicedo MD LAB - BLOOD ORDJake MANE [facility] [address] [place] [address] * (ABNORMAL) Lipid panel reflex to direct LDL (01/12/2016 1:32 PM CDT) Cholesterol 199 <200 mg/dL [facility] Triglycerides 109 <150 mg/dL [facility] HDL Cholesterol 73 >39 mg/dL [facility] LDL Cholesterol Calculated 104(H) <100 mg/dL [facility] Comment: Above desirable: ??100-129 mg/dl Borderline High: ??130-159 mg/dL High: ? 160-189 mg/dL Very high: ? >189 mg/dl Non HDL Cholesterol 126 <130 mg/dL [facility] Blood specimen (specimen) 01/12/2016 1:32 PM CDT 01/12/2016 1:33 PM CDT Sumanth Caicedo MD LAB - BLOOD ALLISON MANE [facility] [address] [address], [facility] [phone] from Last 3 Months or Most Recently Relevant to Health Maintenance Advance Directives For more information, please contact: [phone] * Full Code (Latest Code Status on File) Date Activated Date Inactivated Comments 06/26/2012 3:06 PM 06/29/2012 4:41 PM Care Teams Dental Equipment Technician Relationship Specialty Start Date End Date [facility]- [address] [place] [address] PCP - General 10/12/20
--- OUTSIDE RECORDS SUMMARY | 2023-11-17 12:44 | XMS_ITS | Encounter Summary ---
Author Name Unknown Organization [place] Address [address] [facility] [place] [address] Care Team Providers Care Acting Teacher Name Role Phone [facility]- Primary Care Provider Encounter Details Date Type Department Care Team (Late st Contact Info) Description 10/13/2020 Documentation Only INTERFACED REPORT Unknown, Provider Social [...] on filedocumented in this encounter Care Teams Acting Teacher Relationship Specialty Start Date End Date [facility]- [address] [place] [address] PCP - General 10/12/20 documented as of this encounter
--- OUTSIDE RECORDS SUMMARY | 2023-11-17 12:44 | XMS_ITS | Encounter Summary ---
Author Name Unknown Organization [place] Address [address] [place] [address] Care Team Providers Care Major Sales Associate Name Role Phone Sumanth Caicedo MD Primary Care Provider + Sumanth Caicedo MD Unavailable [phone] Sumanth Caicedo MD Unavailable [phone] Oskar Oliva DPM Unavailable [phone] [facility]- Primary Care Provider Encounter Details Date Type Department Care Team (Late st Contact Info) Description 07/10/2017 MyC Medical Advice [address], [address] [place] [address] Carolina Vargas, [facility] Social History Tobacco Use Types Packs/Day Years [...] on filedocumented in this encounter Care Teams Major Sales Associate Relationship Specialty Start Date End Date Sumanth Caicedo MD PCP - General Family Practice 02/13/15 10/11/20 [place] [address] [address] [address] PCP - Assigned PCP 01/19/14 09/04/18 [facility]- [address], [place] [address] PCP - General 10/12/20 [place] [address] [address] [address] Assigned PCP 01/19/14 05/02/20 Oskar Oliva DPM [address] [facility] [address] [place] [address] Assigned Musculoskeletal Provider 04/24/20 07/25/20 documented as of this encounter
--- OUTSIDE RECORDS SUMMARY | 2023-11-17 12:44 | XMS_ITS | Encounter Summary ---
Author Name Unknown Organization [place] Address [address] [facility] [place] [address] Care Team Providers Care Lighting Fixture Installer Name Role Phone Sumanth Caicedo MD Primary Care Provider + Sumanth Caicedo MD Unavailable [phone] Sumanth Caicedo MD Unavailable [phone] Oskar Oliva DPM Unavailable [phone] [facility]- Primary Care Provider Encounter Details Date Type Department Care Team (Late st Contact Info) Description 06/21/2016 MyC Medical Advice [address], [address] [place] [address] Tabatha Whitaker, [facility] Social History Tobacco Use Types Packs/Day Years [...] on filedocumented in this encounter Care Teams Lighting Fixture Installer Relationship Specialty Start Date End Date Sumanth Caicedo MD PCP - General Family Practice 02/13/15 10/11/20 [place] [address] [address] [address] PCP - Assigned PCP 01/19/14 09/04/18 [facility]- [address], [place] [address] PCP - General 10/12/20 [place] [address] [address] [address] Assigned PCP 01/19/14 05/02/20 Oskar Oliva DPM [address] [facility] [address] [place] [address] Assigned Musculoskeletal Provider 04/24/20 07/25/20 documented as of this encounter
--- OUTSIDE RECORDS SUMMARY | 2023-11-17 12:44 | XMS_ITS | Encounter Summary ---
Author Name Unknown Organization [place] Address [address] [place] [place] [address] Care Team Providers Care Field Captain Name Role Phone Sumanth Caicedo MD Primary Care Provider + Sumanth Caicedo MD Unavailable [phone] Sumanth Caicedo MD Unavailable [phone] Oskar Oliva DPM Unavailable [phone] [facility]- Primary Care Provider Encounter Details Date Type Department Care Team (Late st Contact Info) Description 03/09/2017 MyC Medical Advice [address], [address] [place] [address] aCrolina Vargas, [facility] Social History Tobacco Use Types Packs/Day [...] on filedocumented in this encounter Care Teams Field Captain Relationship Specialty Start Date End Date Sumanth Caicedo MD PCP - General Family Practice 02/13/15 10/11/20 [place] [address] [address] [address] PCP - Assigned PCP 01/19/14 09/04/18 [facility]- [address], [place] [address] PCP - General 10/12/20 [place] [address] [address] [address] Assigned PCP 01/19/14 05/02/20 Oskar Oliva DPM [address] [facility] [address] [place] [address] Assigned Musculoskeletal Provider 04/24/20 07/25/20 documented as of this encounter
--- OUTSIDE RECORDS SUMMARY | 2023-11-17 12:44 | XMS_ITS | Encounter Summary ---
Author Name Unknown Organization [place] Address [address] [facility] [place] [address] Care Team Providers Care Water Gas Operator Name Role Phone Sumanth Caicedo MD Primary Care Provider + Sumanth Caicedo MD Unavailable [phone] Sumanth Caicedo MD Unavailable [phone] Oskar Oliva DPM Unavailable [phone] [facility]- Primary Care Provider Encounter Details Date Type Department Care Team (Late st Contact Info) Description 01/09/2017 MyC Medical Advice [address], [address] [place] [address] Cassia Hernandez Social History Tobacco Use Types Packs/Day Years [...] on filedocumented in this encounter Care Teams Water Gas Operator Relationship Specialty Start Date End Date Sumanth Caicedo MD PCP - General Family Practice 02/13/15 10/11/20 [place] [address] [address] [address] PCP - Assigned PCP 01/19/14 09/04/18 [facility]- [address] [place] [address] PCP - General 10/12/20 [place] [address] [address] [address] Assigned PCP 01/19/14 05/02/20 Oskar Oliva DPM [address] [address] Assigned Musculoskeletal Provider 04/24/20 07/25/20 documented as of this encounter
--- OUTSIDE RECORDS SUMMARY | 2023-11-17 12:45 | XMS_ITS | Continuity of Care Document ---
Author Name Unknown Organization [facility] Address [address] [address] [place] [address] Phone Care Team Providers Care Computerized Table Cutter Name Role Phone Unavailable Unavailable Unavailable Advance Directives Directive Yes / No Effective Date File Name No Information Encounters Encounter Description Practice Location Reason(s) For Visit Diagnoses Date Provider Providers Copied on Encounter [facility], [address] [address], [place], [place], [id number], tel:[phone] [facility] No Information No Information Referring Provider: Jonah Verduzco [place], [address] [place], [address]. tel:[phone] Family History Family Member Type Diagnosis Age At Onset No Information Payers Payer name Insurance type Covered alliance party ID Authoriza tion(s) No Information Social History Type Description Quantity Date Captured Comments Sex Male Smoking Status No Information Chief Complaint And Reason For Visit No Information Reason For Referral Reason For Referral No Information History Of Present Illness Encounter Date Complaint History Of Prese nt Illness No Information Functional Status Date Functional Assessmen t No Information Instructions Date Instruction Additional Infor mation No Information Assessments Type Assessment Date No Information Patient Care Teams Name Effective Dates (start - stop) Status Members No Information
--- OUTSIDE RECORDS SUMMARY | 2023-11-17 12:45 | XMS_ITS | Encounter Summary ---
Author Name Unknown Organization [place] Address [address] [facility] [place] [address] Care Team Providers Care Wool Sampler Name Role Phone Sumanth Caicedo MD Primary Care Provider + Sumanth Caicedo MD Unavailable [phone] Sumanth Caicedo MD Unavailable [phone] Oskar Oliva DPM Unavailable [phone] [facility]- Primary Care Provider Encounter Details Date Type Department Care Team (Late st Contact Info) Description 07/22/2015 MyC Medical Advice [address], [address] [place] [address] Tabatha Whitaker, [facility] Social History Tobacco Use Types Packs/Day [...] on filedocumented in this encounter Care Teams Wool Sampler Relationship Specialty Start Date End Date Sumanth Caicedo MD PCP - General Family Practice 02/13/15 10/11/20 [place] [address] [address] [address] PCP - Assigned PCP 01/19/14 09/04/18 [facility]- [address], [place] [address] PCP - General 10/12/20 [place] [address] [address] [address] Assigned PCP 01/19/14 05/02/20 [place] DPM [address] [facility] [address] [place] [address] Assigned Musculoskeletal Provider 04/24/20 07/25/20 documented as of this encounter
--- OUTSIDE RECORDS SUMMARY | 2023-11-17 12:45 | XMS_ITS | Encounter Summary ---
Author Name Unknown Organization [place] Address [address] [facility] [place] [address] Care Team Providers Care It Applications Analyst Name Role Phone Jonah Verduzco MD Primary Car e Provider Sumanth Caicedo MD Primary Care Provider + Sumanth Caicedo MD Unavailable [phone] Sumanth Caicedo MD Unavailable [phone] Oskar Oliva DPM Unavailable [phone] [place] [facility]- Primary Care Provider Encounter Details Date Type Department Care Team (Late st Contact Info) Description 06/12/[address], [address] [place] [address] [facility] Social History Tobacco Use Types Packs/Day Years [...] on filedocumented in this encounter Care Teams It Applications Analyst Relationship Specialty Start Date End Date Jonah Verduzco MD [facility] [address] [place] [address] PCP - General Family Practice 12/31/10 11/11/14 Sumanth Caicedo MD [facility] [address] [place] [address] PCP - General Family Practice 02/13/15 10/11/20 [place] [address] [address] [address] PCP - Assigned PCP 01/19/14 09/04/18 [place] [facility]- [address], [place] [address] PCP - General 10/12/20 [place] [address] [address] [address] Assigned PCP 01/19/14 05/02/20 Oskar Oliva DPM [address] [facility] [address] [place] [address] Assigned Musculoskeletal Provider 04/24/20 07/25/20 documented as of this encounter
--- OUTSIDE RECORDS SUMMARY | 2023-11-17 12:45 | XMS_ITS | Encounter Summary ---
Author Name Unknown Organization [place] Address [address] [facility] [place] [address] Care Team Providers Care Extruder Operator Name Role Phone Jonah Verduzco MD Primary Car e Provider Sumanth Caicedo MD Primary Care Provider + Sumanth Caicedo MD Unavailable [phone] Sumanth Caicedo MD Unavailable [phone] Oskar Oliva DPM Unavailable [phone] [facility]- Primary Care Provider Encounter Details Date Type Department Care Team (Late st Contact Info) Description 12/31/[address], [address] [place] [address] [facility] [place] [place] Social History Tobacco Use Types Packs/Day Years [...] on filedocumented in this encounter Care Teams Extruder Operator Relationship Specialty Start Date End Date Jonah Verduzco MD [facility] [address] [place] [address] PCP - General Family Practice 12/31/10 11/11/14 Sumanth Caicedo MD [facility] [address] [place] [address] PCP - General Family Practice 02/13/15 10/11/20 [place] [address] [address] [address] PCP - Assigned PCP 01/19/14 09/04/18 [facility]- [address], [place] [address] PCP - General 10/12/20 [place] [address] [address] [address] Assigned PCP 01/19/14 05/02/20 Oskar Oliva DPM [address] [facility] [address] [place] [address] Assigned Musculoskeletal Provider 04/24/20 07/25/20 documented as of this encounter
--- OUTSIDE RECORDS SUMMARY | 2023-11-17 12:45 | XMS_ITS | Clinical Summary ---
Author Name Unknown Organization [facility] [employer] Address [place], [place] [address] Care Team Providers Care Artist Color Separation Name Role Phone Comfort Mae PA-C Primary Care Provider [phone] Allergies No known active allergies Medications Medication Sig Dispensed Refills Start Date End Date Status allopurinoL (ZYLOPRIM) 100 mg tablet Take 1 Tablet (100 mg) by mouth once daily. 0 06/09/2022 Active albuterol HFA (PRO-AIR; VENTOLIN; PROVENTIL) 90 mcg/actuation inhalerIndications :Bronchitis Inhale 1-2 Puffs by mouth every 4 hours if needed for Shortness Of Breath or Wheezing. 1 Each 06/28/2022 Active potassium chloride (K-TAB) 10 mEq extended-release tablet Take 10 mEq by mouth once daily. Active rivaroxaban (Xarelto) 20 mg tablet Take 20 mg by mouth once daily with a meal. Active omeprazole (PRILOSEC) 20 mg Delayed-Release capsule Take 40 mg by mouth once daily. Active rosuvastatin (Crestor) 20 mg tablet Take 20 mg by mouth once daily. Active amLODIPine (NORVASC) 5 mg tabletIndications: Essential hypertension Take 1 Tablet (5 mg) by mouth once daily. 90 Tablet 3 06/21/2023 Active furosemide (LASIX) 40 mg tabletIndications: Leg edema, right Take 1.5 Tablets (60 mg) by mouth once daily. 11/08/2023 Active furosemide (LASIX) 40 mg tabletIndications: Leg edema, right Take 1 Tablet (40 mg) by mouth once daily. 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 states questions about CT scan which showed calcifications of coronaries. Also concerns about fluid retention. ) 11/08/2023 Travel 10/17/2023 Transcribe Orders [facility] [address] [place] [address] Dianna Iqbal MD 10/16/2023 Orders Only [facility] Scanner 1 scan: (1-Ord) [facility], PULMONARY FUNCTION TESTING, 10/16/2023 10/10/2023 11:30 AM CDT Ancillary Procedure [facility] [address] [place] [address] 10/10/2023 Travel 08/29/2023 Transcribe Orders [facility] [address] [place] [address] Dianna Iqbal MD from Last 3 Months Family History Medical History Relation Name Comments Diabetes Father Genetic Other cancer-mother, father~[id number] 65. ~mental health problems-mother Relation Name Status Comments Father Other Social History Tobacco Use Types Packs/Day Years Used Date Smoking Tobacco: Never Smokeless Tobacco: Never Tobacco Cessation:Counseling Given: Not Answered Alcohol Use Standard Drinks/Week Comments Yes 3 (1 standard drink = 0.6 oz pur e alcohol) 3-4 times a week Social Connections Answer Date Recorded Frequency of Communication with Friends and Fami ly 0 04/16/2023 Financial Resource Strain Answer Date R ecorded Difficulty of Paying Living Expenses 3 04/16/2023 Difficulty of Paying Living Expenses Not on file 04/16/2023 Food Insecurity Answer Date Recorded Worried About Running Out of Food in the Last Ye ar 1 04/16/2023 Transportation Needs Answer Date Record ed Lack of Transportation (Medical) 1 04/16/2023 Housing Stability Answer Date Recorded Unable to Pay for Housing in the Last Year 1 04/16/2023 Sex and Gender Information Value Date Recorded Sex Assigned at Not on file Gender Identity Not on file Sexual Orientation Not on file Obstetrics History Last Filed Vital Signs Vital Sign Reading Time Taken Comments Blood Pressure 138/70 11/08/2023 2:52 PM CDT Pulse 77 11/08/2023 2:52 PM CDT Temperature 36.6 ??C (97.8 ??F) 06/13/2023 8:00 AM CS T Respiratory Rate 18 06/13/2023 8:00 AM FOUNDRY MOLDER Oxygen Saturation 98% 11/08/2023 2:52 PM CDT Inhaled Oxygen Concentration - - Weight 124.9 kg (275 lb 6.4 oz) 11/08/2023 2:52 PM CDT Height 200.7 cm (6' 7) 11/08/2023 2:52 PM CDT Body Mass Index 31.03 11/08/2023 2:52 PM CDT Plan of Treatment Upcoming Encounters Date Type Department Care Team (Late st Contact Info) Description 11/17/2023 1:00 PM CDT Ancillary Procedure [facility] [address] [place] [address] Health Maintenance Due Date Last Done Comments Pneumococcal series for age 6-64 (1 of 2 - PCV) 1964 Tdap 1969 Depression screening for age 12+ 1970 HIV for age 15-65 1973 Hepatitis C screening for ag e 18-79 1976 Zoster (shingles) series for age 50+ (1 of 2) 1977 Tetanus booster 1978 Colonoscopy through age 75 12/19/2003 COVID-19 vaccine series (3 - Pfizer risk series) 11/09/2020 10/12/2020, 09/21/2020 Influenza for age 50-64 03/03/2024 BMI (ht and wt on same day) for age 18+ 11/07/2024 11/08/2023, 05/15/2023, 04/16/2023, Additional history exists Lipids for age 45-75 10/31/2027 10/30/2022, 07/20/19 07 Procedures Procedure Name Priority Date/Time Associated Diagnosis Comments PRO-BNP Routine 11/08/2023 3:39 PM CDT Leg edema, right BASIC METABOLIC PANEL Routine 11/08/2023 3:39 PM CDT Leg edema, right SCAN-PULMONARY FUNCTION TEST 10/16/2023 12:[address] CHEST WO Routine 10/10/2023 11:40 AM CDT Pleural effusion Other nonspecific abnormal finding of lung field LIPID PANEL EMILI 10/30/2022 4:36 AM CDT from Last 3 Months or Most Recently Relevant to Health Maintenance Results * (ABNORMAL) PRO-BNP (11/08/2023 3:39 PM CDT) PRO-BNP 470(H) <125 pg/mL 11/09/2023 1:39 PM CDT [facility] Blood BLOOD SPECIMEN / Unknown Venipuncture / Unknown 11/08/2023 3:39 PM CDT 11/08/2023 3:39 PM CDT Narrative [facility] - 11/09/2023 1:39 PM CDT The following cut-points have been suggested for the use of proBNP for the diagnostic evaluation of heart failure (HF) in patient with acute dyspnea. Patients with eGFR >= 60 Diagnosis (rule in CHF) ? <50 Years Old ?450 pg/mL 50 - 75 Years Old ?900 pg/mL >75 Years Old ? 1800 pg/mL Exclusion (rule out CHF) Age Independent ?300 pg/mL A cutoff of 1200 pg/mL for patients with an eGFR <60 yields a diagnostic sensitivity of 89% and specificity of 72% for acute congestive heart failure. ? Clark Allan MD SEND OUTS [facility] [address] [place] [address], * (ABNORMAL) BASIC METABOLIC PANEL (11/08/2023 3:39 PM CDT) SODIUM 143 136 - 145 mmol/L 11/09/2023 1:37 PM CDT [facility] POTASSIUM 3.6 3.5 - 5.1 mmol/L 11/09/2023 1:37 PM CDT [facility] CHLORIDE 104 98 - 107 mmol/L 11/09/2023 1:37 PM CDT [facility] CO2,TOTAL 26 22 - 29 mmol/L 11/09/2023 1:37 PM CDT [facility] ANION GAP 13 5 - 18 11/09/2023 1:37 PM CDT [facility] GLUCOSE 85 70 - 99 mg/dL 11/09/2023 1:37 PM CDT [facility] CALCIUM 8.9 8.8 - 10.2 mg/dL 11/09/2023 1:37 PM CDT [facility] BUN 19 8 - 23 mg/dL 11/09/2023 1:37 PM CDT [facility] CREATININE 1.26(H) 0.70 - 1.20 mg/dL 11/09/2023 1:37 PM CDT [facility] BUN/CREAT RATIO 15 10 - 20 1:37 PM CDT [facility] eGFR 64(L) >90 mL/min/1.7 3m2 11/09/2023 1:37 PM CDT [facility] Comment:As of 2021, eG FR is calculated by the CKD-EPI creatinine equation without race adjustment. ??eGFR can be influenced by muscle mass, exercise, and diet. ??The reported eGFR is an estimation only and is only applicable if the renal function is stable. Blood BLOOD SPECIMEN / Unknown Venipuncture / Unknown 11/08/2023 3:39 PM CDT 11/08/2023 3:39 PM CDT Clark Allan MD [facility] [address] [place] [address], * SCAN-PULMONARY FUNCTION TEST (10/16/2023 12:00 AM CDT) Scanner OTHER * CT CHEST WO (10/10/2023 11:40 AM CDT) Anatomical Region Laterality Modality CHEST, THORAX, HEART Computed To mography 10/10/2023 11:4 0 AM CDT Impressions 10/10/2023 2:53 PM CDT 1. ??Redemonstration of peribronchovascular consolidation, reticulation, and architectural distortion involving all lobes, worst in the right upper lobe. Compared to prior, associated groundglass has slightly improved. Overall these findings are most compatible with evolving sequela of prior infection or drug reaction, likely now reflecting some degree of residual scarring/fibrosis. Fibrotic hypersensitivity pneumonitis could present similarly in the appropriate clinical scenario. Correlate with history. 2. ??Similar size of a small right pleural effusion. Narrative 10/10/2023 2:53 PM CDT For Patients: As a result of the Cures Act, medical imaging exams and procedure reports are released immediately into your electronic medical record. You may view this report before your referring provider. If you have questions, please contact your health care provider. EXAM: CT CHEST WO LOCATION: [facility] DATE: 10/10/2023 INDICATION: Pleural Effusion Other Nonspecific Abnormal Finding Of Lung Field COMPARISON: 06/10/2023 TECHNIQUE: CT chest without IV contrast. Multiplanar reformats were obtained. Dose reduction techniques were used. CONTRAST: None. FINDINGS: LUNGS AND PLEURA: Redemonstration of peribronchovascular consolidation, subpleural reticulation, and architectural distortion predominantly involving all lobes, worst in the right upper lobe. Overall these findings have slightly improved compared to 06/10/2023, with decreased airway centric groundglass within these regions. No definite new areas of consolidation. Calcified benign nodules. Evaluation for solitary nodules is limited given extensive parenchymal disease. There is similar size of a small right pleural effusion. No pneumothorax. MEDIASTINUM/AXILLAE: Calcified hilar lymph nodes. No pathologically enlarged thoracic lymph nodes. Unremarkable thyroid. Normal caliber thoracic aorta. Normal heart size. No pericardial effusion. CORONARY ARTERY CALCIFICATION: Severe. UPPER ABDOMEN: Calcified splenic granulomas. Fat stranding is seen surrounding several mesenteric lymph nodes. MUSCULOSKELETAL: No acute osseous abnormalities. Procedure Note Sumanth Butler MD - 10/10/2023 For Patients: As a result of the Cures Act, medical imagingexams and procedure reports are released immediately into your electronicmedical record. You may view this report before your referring provider.If you have questions, please contact your health care provider. EXAM: CT CHEST WO LOCATION: [facility] DATE: 10/10/2023 INDICATION: Pleural Effusion Other Nonspecific Abnormal Finding Of LungField COMPARISON: 06/10/2023 TECHNIQUE: CT chest without IV contrast. Multiplanar reformats wereobtained. Dose reduction techniques were used. CONTRAST: None. FINDINGS: LUNGS AND PLEURA: Redemonstration of peribronchovascular consolidation,subpleural reticulation, and architectural distortion predominantlyinvolving all lobes, worst in the right upper lobe. Overall these findingshave slightly improved compared to 06/10/2023, with decreased airwaycentric groundglass within these regions. No definite new areas ofconsolidation. Calcified benign nodules. Evaluation for solitary nodulesis limited given extensive parenchymal disease. There is similar size of asmall right pleural effusion. No pneumothorax. MEDIASTINUM/AXILLAE: Calcified hilar lymph nodes. No pathologicallyenlarged thoracic lymph nodes. Unremarkable thyroid. Normal caliberthoracic aorta. Normal heart size. No pericardial effusion. CORONARY ARTERY CALCIFICATION: Severe. UPPER ABDOMEN: Calcified splenic granulomas. Fat stranding is seensurrounding several mesenteric lymph nodes. MUSCULOSKELETAL: No acute osseous abnormalities. IMPRESSION: 1. Redemonstration of peribronchovascular consolidation, reticulation,and architectural distortion involving all lobes, worst in the right upperlobe. Compared to prior, associated groundglass has slightly improved.Overall these findings are most compatible with evolving sequela of priorinfection or drug reaction, likely now reflecting some degree of residualscarring/fibrosis. Fibrotic hypersensitivity pneumonitis could presentsimilarly in the appropriate clinical scenario. Correlate with history. 2. Similar size of a small right pleural effusion. Dianna Iqbal MD CT * (ABNORMAL) LIPID PANEL (10/30/2022 4:36 AM CDT) CHOLESTEROL,TOTAL 112 mg/dL 023 11:04 AM CDT [facility] [employer] Comment: Cholesterol, Total Reference Ranges Desirable <200 mg/dL Borderline 200-239 mg/dL High >=240 mg/dL TRIGLYCERIDES 51 <150 mg/dL 10/31/2022 11:04 AM CDT [facility] [employer] HDL CHOLESTEROL 60 >40 mg/dL 11:04 AM CDT [facility] NON-HDL CHOLESTEROL 52 <145 mg/dl 10/31/2022 11:04 AM CDT [facility] CHOL/HDL RATIO 1.87 <4.50 10/31/2022 11:04 AM CDT [facility] LDL CHOLESTEROL 42 <=130 mg/dL 10/31/2022 11:04 AM CDT [facility] VLDL CHOLESTEROL 10(L) >30 mg/dL 11/01/19 11:04 AM CDT [facility] Blood BLOOD SPECIMEN / Unknown Butterfly / Unknown 10/30/2022 4:36 AM CDT 10/30/2022 5:02 AM CDT Anish Palma MD CHEMISTRY [facility] [address] [place] [address], from Last 3 Months or Most Recently Relevant to Health Maintenance Advance Directives * Full Code (Latest Code Status on File) Date Activated Date Inactivated Comments 06/10/2023 5:05 PM 06/13/2023 1:01 PM Question Answer Comments Code Status Discussion: Reviewed Preferences * Full Code Date Activated Date Inactivated Comments 10/30/2022 7:08 AM 11/03/2022 3:39 PM Question Answer Comments Code Status Discussion: Reviewed Preferences * Full Code Date Activated Date Inactivated Comments 10/29/2022 1:23 PM 10/30/2022 7:07 AM Question Answer Comments Code Status Discussion: Unable to Assess Preferences, Provider to review later * Full Code Date Activated Date Inactivated Comments 06/14/2022 10:27 AM 06/15/2022 2:19 AM Question Answer Comments Code Status Discussion: Unable to Assess Preferences, Provider to review later * Full Code Date Activated Date Inactivated Comments 11/19/2007 8:12 AM 11/19/2007 3:59 PM Care Teams Artist Color Separation Relationship Specialty Start Date End Date Comfort Mae, TONIO [address] [place] [id number] PCP - General Physician Jewel Bearing Maker 06/09/22
--- OUTSIDE RECORDS SUMMARY | 2023-11-17 12:45 | XMS_ITS | Encounter Summary ---
Author Name Unknown Organization [place] Address [address] [facility] [place] [address] Care Team Providers Care Custody Officer Name Role Phone Sumanth Caicedo MD Primary Care Provider + Sumanth Caicedo MD Unavailable [phone] Sumanth Caicedo MD Unavailable [phone] Oskar Oliva DPM Unavailable [phone] [facility]- Primary Care Provider Encounter Details Date Type Department Care Team (Late st Contact Info) Description 02/22/2016 My[facility] Medical Advice [address], [address] [place] [address] [place] [address] [facility] [address] Social History Tobacco Use Types Packs/Day Years [...] on filedocumented in this encounter Care Teams Custody Officer Relationship Specialty Start Date End Date Sumanth Caicedo MD PCP - General Family Practice 02/13/15 10/11/20 [place] [address] [place] [address] PCP - Assigned PCP 01/19/14 09/04/18 [facility] [address] [place] [address] PCP - General 10/12/20 [place] [address] [place] [address] Assigned PCP 01/19/14 05/02/20 Oskar Oliva DPM [address] [facility] [address] [place] [address] Assigned Musculoskeletal Provider 04/24/20 07/25/20 documented as of this encounter
== END 2023-11-17 12:43 | disposition home or self-care (01) ==
LOC: RAD 12:42
PROVIDERS: PCP Physician Assistant Medical; Visit Provider Internal Medicine
DX: I48.0 Paroxysmal atrial fibrillation (principal); I35.1 Nonrheumatic aortic (valve) insufficiency; I51.7 Cardiomegaly
CPT/HCPCS: 93306

== ENCOUNTER 2024-02-20 14:00 | Outpatient (CLI) | payer BC, SELFPAY | END 2024-02-20 14:01 | disposition home or self-care (01) | LOC: NFLDREF 02-21 06:45 | PROVIDERS: PCP Physician Assistant Medical; Referring Provider Physician Assistant Medical; Visit Provider Internal Medicine Nephrology | DX: N18.9 Chronic kidney disease, unspecified (principal); I10 Essential (primary) hypertension; I50.9 Heart failure, unspecified; E87.6 Hypokalemia; M10.9 Gout, unspecified; I48.91 Unspecified atrial fibrillation; R79.89 Other specified abnormal findings of blood chemistry | CPT/HCPCS: 80048; 80061; 80069; 82043; 82570; 82728; 83540; 83550; 83880; 83970; 84450; 84460; 84550 ==

== ENCOUNTER 2024-10-15 09:05 | Outpatient (CLI) | payer BC, SELFPAY | END 2024-10-15 09:06 | disposition home or self-care (01) | LOC: NFLDREF 10-18 16:01 | PROVIDERS: PCP Physician Assistant Medical; Referring Provider Physician Assistant Medical; Visit Provider Physician Assistant Medical | DX: Z12.5 Encounter for screening for malignant neoplasm of prostate (principal) | CPT/HCPCS: G0103 ==

== ENCOUNTER 2025-02-20 14:48 | Outpatient (CLI) | payer BC, SELFPAY | END 2025-02-20 14:49 | disposition home or self-care (01) | LOC: NFLDREF 02-25 14:11 | PROVIDERS: PCP Physician Assistant Medical; Referring Provider Physician Assistant Medical; Visit Provider Physician Assistant Medical | DX: R55 Syncope and collapse (principal); E78.2 Mixed hyperlipidemia; I48.91 Unspecified atrial fibrillation | CPT/HCPCS: 80048 ==